=== PATIENT | male | born 1985 | race Caucasian/White ===

== ENCOUNTER 2017-12-10 13:22 | Emergency (ER) | payer SELFPAY ==
[2017-12-10] MEDS ORDERED: ONDANSETRON HCL INJ/PF 4 MG/2 ML SDV IV ONE (14:02)
[2017-12-10] MEDS ORDERED: NORMAL SALINE 1000 ML 1,000 ML IV ONE (14:02)
[2017-12-10] MEDS ORDERED: MORPHINE SULFATE 10 MG/ML INJ IV ONE (14:02)
--- NOTE | 2017-12-10 14:03 | ER Document Report ---
ED Medical Screen (RME) - General Chief Complaint: Rectal Bleeding Stated Complaint: ABDOMINAL PAIN Time Seen by Provider: 12/10/17 14:01 Notes: Patient states that he has severe bilateral lower abdominal pain since yesterday with rectal bleeding. States he has never had similar symptoms in the past. Denies any significant past medical history or surgeries. TRAVEL OUTSIDE OF THE [place] IN LAST 30 DAYS: No - Related Data Allergies/Adverse Reactions: ketorolac [From Toradol] Allergy (Verified 12/10/17 13:25) tramadol [From Ultram] Allergy (Verified 12/10/17 13:25) Past Medical History - Social History Chew tobacco use (# tins/day): No Frequency of alcohol use: None Drug Abuse: None Renal/ Medical History: Denies: Hx Peritoneal Dialysis Physical Exam - Vital signs Vitals: Temp Pulse Resp BP Pulse Ox 97.9 F 79 16 115/84 98 12/10/17 13:28 12/10/17 13:28 12/10/17 13:28 12/10/17 13:28 12/10/17 13:28 Course - Vital Signs Vital signs: Temp Pulse Resp BP Pulse Ox 97.9 F 79 16 115/84 98 12/10/17 13:28 12/10/17 13:28 12/10/17 13:28 12/10/17 13:28 12/10/17 13:28
[2017-12-10 14:16] LABS: ABSOLUTE EOSINOPHILS # (AUTO) 0.4 10^3/uL (0.0-0.6); ABSOLUTE LYMPHOCYTES (AUTO) 1.3 10^3/uL (0.5-4.7); ABSOLUTE MONOCYTES (AUTO) 0.8 10^3/uL (0.1-1.4); BASOPHILS % (AUTO) 0.3 % (0-2); EOSINOPHILS % (AUTO) 3.7 % (0-6); HEMATOCRIT 46.6 % (37.9-51.0); HEMOGLOBIN 15.8 g/dL (13.5-17.0); LYMPHOCYTES % (AUTO) 11.1 % (13-45); MEAN CORPUSCULAR HEMOGLOBIN 30.9 pg (27.0-33.4); MEAN CORPUSCULAR HGB CONC 33.8 g/dL (32.0-36.0); MEAN CORPUSCULAR VOLUME 91 fl (80-97); MONOCYTES % (AUTO) 7.1 % (3-13); PLATELET COUNT 326 10^3/uL (150-450); RED BLOOD COUNT 5.11 10^6/uL (4.35-5.55); RED CELL DISTRIBUTION WIDTH 13.5 % (11.5-14.0); SEGMENTED NEUTROPHILS % (AUTO) 77.8 % (42-78); TOTAL CELLS COUNTED % (AUTO) 100 %; WHITE BLOOD COUNT 11.6 10^3/uL (4.0-10.5)
[2017-12-10 14:39] LABS: ALANINE AMINOTRANSFERASE 24 U/L (21-72); ALBUMIN 4.6 g/dL (3.5-5.0); ALKALINE PHOSPHATASE 56 U/L (38-126); ANION GAP 13 (5-19); ASPARTATE AMINO TRANSFERASE 30 U/L (17-59); BILIRUBIN,DIRECT 0.3 mg/dL (0.0-0.4); BILIRUBIN,TOTAL 0.5 mg/dL (0.2-1.3); BLOOD UREA NITROGEN 16 mg/dL (7-20); CALCIUM 10.3 mg/dL (8.4-10.2); CARBON DIOXIDE 26 mmol/L (22-30); CHLORIDE 107 mmol/L (98-107); GLUCOSE 100 mg/dL (75-110); POTASSIUM 4.6 mmol/L (3.6-5.0); SODIUM 146.2 mmol/L (137-145); TOTAL PROTEIN 7.4 g/dL (6.3-8.2)
--- NOTE | 2017-12-10 14:52 | ER Document Report ---
ED GI Bleed / Rectal Pain - General Chief Complaint: Rectal Bleeding Stated Complaint: ABDOMINAL PAIN Time Seen by Provider: 12/10/17 14:01 Notes: The patient is a 32-year-old male who presents with lower abdominal pain, cramping and bleeding from his rectum. Patient is concerned because the pain is increasing. He had a bowel movement earlier today. Denies fevers, nausea, vomiting, history of inflammatory bowel disease, recent travel, recent antibiotic use, flank pain or urinary symptoms. TRAVEL OUTSIDE OF THE [place] IN LAST 30 DAYS: No - Related Data Allergies/Adverse Reactions: ketorolac [From Toradol] Allergy (Verified 12/10/17 13:25) tramadol [From Ultram] Allergy (Verified 12/10/17 13:25) Past Medical History - General Information source: Patient - Social History Smoking Status: Current Every Day Smoker Chew tobacco use (# tins/day): No Frequency of alcohol use: None Drug Abuse: None Family History: Reviewed & Not Pertinent Patient has suicidal ideation: No Patient has homicidal ideation: No Renal/ Medical History: Denies: Hx Peritoneal Dialysis Review of Systems - Review of Systems Notes: REVIEW OF SYSTEMS: CONSTITUTIONAL: -fevers, -chills EENT: -eye pain, -difficulty swallowing, -nasal congestion CARDIOVASCULAR: -chest pain, -syncope. RESPIRATORY: -cough, -SOB GASTROINTESTINAL: +lower abdominal pain, -nausea, -vomiting, -diarrhea GENITOURINARY: -dysuria, -hematuria MUSCULOSKELETAL: -back pain, -neck pain SKIN: -rash or skin lesions. HEMATOLOGIC: -easy bruising or bleeding. LYMPHATIC: -swollen, enlarged glands. NEUROLOGICAL: -altered mental status or loss of consciousness, -headache, - neurologic symptoms PSYCHIATRIC: -anxiety, -depression. ALL OTHER SYSTEMS REVIEWED AND NEGATIVE. Physical Exam - Vital signs Vitals: Temp Pulse Resp BP Pulse Ox 97.9 F 79 16 115/84 98 12/10/17 13:28 12/10/17 13:28 12/10/17 13:28 12/10/17 13:28 12/10/17 13:28 - Notes Notes: PHYSICAL EXAMINATION: GENERAL: Pt appears under the influence of drugs. Well-appearing, well- nourished and in no acute distress. HEAD: Atraumatic, normocephalic. EYES: Pupils equal round and reactive to light, extraocular movements intact, sclera anicteric, conjunctiva are normal. ENT: nares patent, oropharynx clear without exudates. Moist mucous membranes. NECK: Normal range of motion, supple without lymphadenopathy LUNGS: Breath sounds clear to auscultation bilaterally and equal. No wheezes rales or rhonchi. HEART: Regular rate and rhythm without murmurs ABDOMEN: Soft, mild left lower quadrant and suprapubic tenderness, normoactive bowel sounds. No guarding, no rebound. No masses appreciated. RECTAL: No hemorrhoids. Brown stool. Non-tender. EXTREMITIES: Normal range of motion, no pitting or edema. No cyanosis. NEUROLOGICAL: Cranial nerves grossly intact. Normal speech, normal gait. Normal sensory and motor exams. PSYCH: Normal mood, normal affect. SKIN: Warm, Dry, normal turgor, no rashes or lesions noted. Course - Re-evaluation Re-evalutation: With left lower quadrant abdominal tenderness and blood in his stool, CT abdomen pelvis was ordered. CT did not show any acute abnormalities, other than a moderate stool burden. Patient denies any drug use, but his UDS is positive for benzos and opioids. Instructed him to begin a stool softener from suspected opioid-induced constipation. No blood in stool on physical exam and his hemoglobin is 15.6. Using the Glascow-Blatchford Bleeding Scale, he is low risk for adverse events from his GI bleed and is safe for outpatient follow-up with the GI doctor. Given very strict return precautions and he understands. - Vital Signs Vital signs: Temp Pulse Resp BP Pulse Ox 97.8 F 71 16 121/77 100 12/10/17 17:36 12/10/17 17:36 12/10/17 13:28 12/10/17 17:36 12/10/17 17:36 - Laboratory Result Diagrams: 12/10/17 14:05 12/10/17 14:05 Laboratory results interpreted by me: 12/10/17 12/10/17 14:05 14:05 WBC 11.6 H Lymphocytes % 11.1 L Absolute Neutrophils 9.0 H Sodium 146.2 H Calcium 10.3 H - Diagnostic Test Radiology reviewed: Image reviewed, Reports reviewed Radiology results interpreted by me: CT A/P: Moderate stool burden. Discharge - Discharge Clinical Impression: Blood in stool Abdominal pain Qualifiers: Abdominal location: left lower quadrant Qualified Code(s): R10.32 - Left lower quadrant pain Constipation Qualifiers: Constipation type: unspecified constipation type Qualified Code(s): K59.00 - Constipation, unspecified Condition: Stable Disposition: HOME, SELF-CARE Additional Instructions: ABDOMINAL PAIN: There are many causes of abdominal pain. Pain can mean a serious problem requiring surgery (such as appendicitis). It can also be an innocent problem that goes away on its own (such as a viral infection). Often, time must pass to determine the cause of pain. The physician does not feel that hospitalization is necessary, at present. Things may change within the next 24 hours. Call the doctor or come back for re- examination if any problems occur, such as: (1) Pain that becomes more severe, steady, or becomes concentrated in one specific area. Also, pain that is more severe with movement or coughing. (2) Vomiting that persists or becomes more frequent. (3) Blood in the vomitus, urine, or bowel movements. Blood in the stool may have a tarry or black appearance. (4) Shaking chills or fever greater than 100 degrees F. (5) The abdomen becomes more distended or swollen. (6) Bowel movements cease. (7) Failure to improve as expected. NORMAL EXAM AND WORKUP: At this time, your examination and workup show no significant abnormality. No significant abnormal physical findings are noted. All laboratory, EKG, and imaging (x-ray, CT scans, ultrasound) studies that were ordered show no significant abnormality. Although your examination and all studies that were ordered showed no significant abnormal finding, there are no examinations and no studies that are 100% accurate. There is always the possibility that some abnormality could exist and not be detected with physical examination or within the limits and capabilities of laboratory and other studies. You should return or follow up as you were instructed on your visit today for further evaluation if your symptoms do not resolve. CONSTIPATION: Constipation is a common problem. It is especially likely as you get older. Constipation is a common cause of abdominal pain, but sometimes causes no symptoms at all. Causes of constipation include certain medications, dehydration, diets, inactivity, and low-fiber intake. Rarely, it can be a symptom of underlying disease. The physician has evaluated you for this. Avoid constipation by eating a diet high in fiber, fruits, and vegetables. Drink plenty of liquids. Get regular exercise. If possible, avoid constipating medicines like narcotic pain medication. Some vitamin tablets can cause constipation. Stool softeners may be needed for difficult cases. An excellent stool softener is Konsyl which is available at [employer], and [employer] drug store. Just add a teaspoon to a glass of pineapple or orange juice daily or twice a day if needed. Laxatives are useful for occasional constipation. You should use them only when necessary. Too-frequent use can make your bowels dependent on them. Some over the counter laxatives available without prescription are: Milk of Magnesia, 1-2 tablespoons twice a day Dulcolax, 5 mg pill or 10 mg suppository. Citrate of Magnesia, 4-5 ounces a day for a day or two For acute constipation, Fleet's Enemas and Dulcolax suppositories are helpful. Chronic, correction use of laxatives or enemas is not a good idea. Your bowel may become dependant on them. You do not need to have a bowel movement every day. Many people do fine with a bowel movement every three or four days. You should call your doctor or return for re-evaluation if you pass blood in the stool, or if you develop fever or increasing abdominal pain. BULK LAXATIVES: Bulk laxatives make the stool softer and bulkier. They're useful for preventing constipation. You can choose between psyllium, methylcellulose, and polycarbophil. They are available without a prescription. Psyllium brand names include Konsyl, Metamucil, Perdiem, Effer-Syllium and Hydrocil. It's available as powder, flavored drink powder, or chewable. The usual dose of psyllium powder is one heaping teaspoon in water each morning, increasing to twice a day if needed. [place]ano juice can disguise the slightly grainy texture. Methylcellulose is marketed as Citrucel and other brands. The average dose is two grams in a cup of water one to three times a day. Polycarbophil is marketed as Fiber-Con. Take two tablets with a cup of water one to three times a day. LAXATIVE: A laxative agent has been prescribed for your condition. This should result in passage of stool within 12 hours. Some mild intestinal cramping is common as the hard stool begins to move. You may have loose or runny stools for a short time. Contact your doctor if there is severe cramping, vomiting, or passage of blood. Return for further care if this medicine fails to improve your condition. FOLLOW-UP CARE: If you have been referred to a physician for follow-up care, call the physician s office for an appointment as you were instructed or within the next two days. If you experience worsening or a significant change in your symptoms, notify the physician immediately or return to the Emergency Department at any time for re-evaluation. Prescriptions: Polyethylene Glycol 3350 [Miralax] 1 cap PO DAILY #527 powder Referrals: GORAN CAMPA MD [ACTIVE STAFF] - Follow up as needed
[2017-12-10] MEDS ORDERED: ACETAMINOPHEN 100 ML IV ONE (15:39)
--- NOTE | 2017-12-10 16:57 | RADIOLOGY REPORT (SQ) ---
EXAM DESCRIPTION: CT ABD/PELVIS WITH IV ONLY COMPLETED DATE/TIME: 12/10/2017 4:38 pm REASON FOR STUDY: LLQ and suprapubic pain with rectal bleeding COMPARISON: None. TECHNIQUE: CT scan of the abdomen and pelvis performed using helical scanning technique with dynamic intravenous contrast injection. No oral contrast. Images reviewed with lung, soft tissue, and bone windows. Reconstructed coronal and sagittal MPR images reviewed. Delayed images for evaluation of the urinary system also acquired. All images stored on PACS. All CT scanners at this facility use dose modulation, iterative reconstruction, and/or weight based d osing when appropriate to reduce radiation dose to as low as reasonably achievable (ALARA). [facility]: Dose Right [facility]: CareDose [facility]: Dose Right [facility]: Teradose 4D [facility]: Yakimbi CONTRAST TYPE AND DOSE: contrast/concentration: Isovue 370.00 mg/ml; Total Contrast Delivered: 99.0 ml; Total Saline Delivered: 67.0 ml RENAL FUNCTION: BUN 16 creatinine 0.83 RADIATION DOSE: CT Rad equipment meets quality standard of care and radiation dose reduction techniq ues were employed. CTDIvol: 7.9 - 10.8 mGy. DLP: 1150 mGy-cm.. LIMITATIONS: None. FINDINGS: LOWER CHEST: No significant findings. No nodules or infiltrates. LIVER: Normal size. No masses. No dilated ducts. SPLEEN: Normal size. No focal lesions. PANCREAS: No masses. No significant calcifications. No adjacent inflammation or peripancreatic fluid collections. Pancreatic duct not dilated. GALLBLADDER: No identified stones by CT criteria. No inflammatory changes to suggest cholecystitis. ADRENAL GLANDS: No significant masses or asymmetry. RIGHT KIDNEY AND URETER: No solid masses. No significant calcifications. No hydronephrosis or hyd roureter. LEFT KIDNEY AND URETER: No solid masses. There is a small nonobstructing lower calyceal calculus. No hydronephrosis or hydroureter. AORTA AND VESSELS: No aneurysm. No dissection. Renal arteries, SMA, celiac without stenosis. RETROPERITONEUM: No retroperitoneal adenopathy, hemorrhage or masses. BOWEL AND PERITONEAL CAVITY: No masses or inflammatory changes. Considerable stool is present in the distal sigmoid and rectum. APPENDIX: Surgically absent. PELVIS: No mass. No free fluid. Normal bladder. ABDOMINAL WALL: No masses. No hernias. BONES: Degenerative disc changes at T12-L1. OTHER: No other significant finding. IMPRESSION: 1. Considerable stool in the distal sigmoid and rectum suggesting constipation. 2. L5-S1 degenerative disc changes. 3. No acute findings in the abdomen or pelvis. 3. Nonobstructing left intrarenal calculus. TECHNICAL DOCUMENTATION: JOB ID: [id number] Quality ID # [id number]: Final reports with documentation of one or more dose reduction techniques (e.g., Au tomated exposure control, adjustment of the mA and/or kV according to patient size, use of iterative reconstruction technique) 2010 [employer]- All Rights Reserved Reading location - IP/workstation name: [email or web address]
[2017-12-10 17:08] LABS: AMORPHOUS SEDIMENT,URINE TRACE /HPF; APPEARANCE,URINE SLIGHTLY-CLOUDY; BILIRUBIN,URINE NEGATIVE (NEGATIVE); COLOR,URINE YELLOW; GLUCOSE, URINE NEGATIVE (NEGATIVE); KETONES,URINE NEGATIVE (NEGATIVE); LEUKOCYTE ESTERASE,URINE NEGATIVE (NEGATIVE); NITRITE,URINE NEGATIVE (NEGATIVE); PROTEIN,URINE NEGATIVE (NEGATIVE); URINE SPECIFIC GRAVITY 1.016; UROBILINOGEN,URINE NEGATIVE mg/dL (<2.0)
[2017-12-10 17:23] LABS: URINE AMPHETAMINES SCREEN NEGATIVE; URINE BARBITURATES SCREEN NEGATIVE; URINE BENZODIAZEPINES SCREEN UNCONFIRMED POSITIVE; URINE COCAINE SCREEN NEGATIVE; URINE MARIJUANA (THC) SCREEN NEGATIVE; URINE METHADONE SCREEN NEGATIVE; URINE PHENCYCLIDINE SCREEN NEGATIVE
[2017-12-10 17:42] VITALS: BP 121/77
== END 2017-12-10 17:41 | disposition home or self-care (01) ==
LOC: ER 13:22
DX: K59.00 Constipation, unspecified (principal); K92.1 Melena; R10.32 Left lower quadrant pain; F17.200 Nicotine dependence, unspecified, uncomplicated; Z88.5 Allergy status to narcotic agent; Z88.8 Allergy status to other drugs, medicaments and biological substances
CPT/HCPCS: 99284; 96361; 96374; 96375; 96365; 36415; 85025; 80053; 81001; 80307; 74177; J2270; J2405; J7030; J0131

== ENCOUNTER 2018-02-04 19:35 | Emergency (ER) | payer SELFPAY ==
[2018-02-04 19:51] VITALS: BP 138/87
--- NOTE | 2018-02-04 20:03 | ER Document Report ---
ED Extremity Problem, Lower - General Chief Complaint: Foot Injury Stated Complaint: LEFT FOOT PAIN Time Seen by Provider: 02/04/18 19:51 Mode of Arrival: Ambulatory Information source: Patient Notes: 32-year-old male presents to ED for complaint left foot pain 3 days. He states he kicked a car jamshid 3 days ago to get out of his way try to get to straighten up the weight was supposed to be and injured his foot. He states his foot has bitten progressively more more painful to now he cannot walk on it and is been walking on the side of the foot. TRAVEL OUTSIDE OF THE [place] IN LAST 30 DAYS: No - HPI Patient complains to provider of: Injury, Pain, Swelling Location: Foot Occurred: Other - 3 days Where: Public place Onset/Duration: Gradual, Worse Quality of pain: Achy, Sharp, Throbbing Severity: Moderate Pain Level: 4 Recent injury: Yes Associated symptoms: Painful ambulation Exacerbated by: Hanging down, Movement, Walking Relieved by: Nothing - Related Data Allergies/Adverse Reactions: ketorolac [From Toradol] Allergy (Verified 02/04/18 19:36) tramadol [From Ultram] Allergy (Verified 02/04/18 19:36) Past Medical History - General Information source: Patient, Legal Guardian - Social History Smoking Status: Current Every Day Smoker Cigarette use (# per day): Yes - One half pack per day Chew tobacco use (# tins/day): No Smoking Education Provided: Yes - 4 min Frequency of alcohol use: None Drug Abuse: None Occupation: [employer] Lives with: Parents Family History: Reviewed & Not Pertinent Patient has suicidal ideation: No Patient has homicidal ideation: No - Past Medical History Cardiac Medical History: Reports: None Pulmonary Medical History: Reports: None EENT Medical History: Reports: None Neurological Medical History: Reports: None Endocrine Medical History: Reports: None Renal/ Medical History: Reports: None Malignancy Medical History: Reports None GI Medical History: Reports: None Musculoskeltal Medical History: Reports Hx Musculoskeletal Deformity, Reports Hx Musculoskeletal Trauma Skin Medical History: Reports None Psychiatric Medical History: Reports: None Traumatic Medical History: Reports: Hx Fractures - Skull fracture, right lower leg fracture, lost 5th finger, Hx Traumatic Brain Injury Past Surgical History: Reports: Hx Neurologic Surgery - Skull and brain surgery after fractures skull and TBI, Hx Orthopedic Surgery - 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 - Immunizations Immunizations up to date: Yes Hx Diphtheria, Pertussis, Tetanus Vaccination: Yes Review of Systems - Review of Systems Constitutional: No symptoms reported EENT: No symptoms reported Cardiovascular: No symptoms reported Respiratory: No symptoms reported Gastrointestinal: No symptoms reported Genitourinary: No symptoms reported Male Genitourinary: No symptoms reported Musculoskeletal: Other - Left foot and toes pain and swelling to the left foot Skin: No symptoms reported Hematologic/Lymphatic: No symptoms reported Neurological/Psychological: No symptoms reported -: Yes All other systems reviewed and negative Physical Exam - Vital signs Vitals: Temp Pulse Resp BP Pulse Ox 99.1 F 93 16 138/87 H 97 02/04/18 19:48 02/04/18 19:48 02/04/18 19:48 02/04/18 19:48 02/04/18 19:48 Interpretation: Normal - General General appearance: Appears well, Alert - HEENT Head: Normocephalic, Atraumatic Eyes: Normal Pupils: PERRL - Respiratory Respiratory status: No respiratory distress Chest status: Nontender Breath sounds: Normal Chest palpation: Normal - Cardiovascular Rhythm: Regular Heart sounds: Normal auscultation Murmur: No - Abdominal Inspection: Normal Distension: No distension Bowel sounds: Normal Tenderness: Nontender Organomegaly: No organomegaly - Back Back: Normal, Nontender - Extremities General upper extremity: Normal inspection, Nontender, Normal color, Normal ROM , Normal temperature General lower extremity: Normal temperature. No: Haseeb's sign Foot: Tender, Ecchymosis, Edema, Metatarsal compress. pain, No evidence of FB. No: Navicular tenderness, Unable to bear weight - Very painful - Neurological Neuro grossly intact: Yes Cognition: Normal Orientation: AAOx4 Rima Coma Scale Eye Opening: Spontaneous Rima Coma Scale Verbal: Oriented Rima Coma Scale Motor: Obeys Commands Rima Coma Scale Total: 15 Speech: Normal Motor strength normal: LUE, RUE, LLE, RLE Sensory: Normal - Psychological Associated symptoms: Normal affect, Normal mood - Skin Skin Temperature: Warm Skin Moisture: Dry Skin Color: Normal Course - Re-evaluation Re-evalutation: 02/04/18 20:50 Discussed x-ray report with patient and written report given to patient as he does not read so he can take at home to his father. Patient was given verbal instructions and written instructions that he can give to his father to help him with. Patient does not read or write. There is no fracture on the foot. Patient was instructed to elevate and ice his foot use Tylenol and Motrin. Patient was offered a postop shoe and crutches and he refused both he states no he would just use his shoes walk on the side of his foot like he has been doing. Patient states he has no primary doctor he was given a list of the doctors for him and his father to find a doctor for him. He was also given the name and number of a scabbler. - Vital Signs Vital signs: Temp Pulse Resp BP Pulse Ox 99.1 F 93 16 138/87 H 97 02/04/18 19:48 02/04/18 19:48 02/04/18 19:48 02/04/18 19:48 02/04/18 19:48 - Diagnostic Test Radiology reviewed: Image reviewed, Reports reviewed Discharge - Discharge Clinical Impression: Contusion of left foot including toes Qualifiers: Encounter type: initial encounter Qualified Code(s): S90.32XA - Contusion of left foot, initial encounter; S90.122A - Contusion of left lesser toe(s) without damage to nail, initial encounter; S90.122A - Contusion of left lesser toe(s) without damage to nail, initial encounter Condition: Stable Disposition: HOME, SELF-CARE Instructions: Family Physicians / Practices Additional Instructions: CONTUSION: Your injury has resulted in a contusion -- a crushing of the deep tissues. No injury to important structures was detected during the physician's exam. Contusions vary in the amount of pain they cause, and in the length of time required for healing. Typically, the area will become bruised, and will remain painful to touch for two or three weeks. However, most patients are back to working and playing within a few days. After the initial period of rest and cold-packs, your symptoms (together with the doctor's recommendations) will determine how rapidly you can get back to full activity. Usually this means "do what feels okay, but don't do things that hurt." If re-examination was recommended, it's important to follow up as instructed. Call the doctor or return any time if pain increases, if swelling becomes severe, if you develop numbness or weakness in an injured extremity, or if any other alarming symptoms occur. USE OF TYLENOL (ACETAMINOPHEN): Acetaminophen may be taken for pain relief or fever control. It's much safer than aspirin, offering a wider range of "safe" dosages. It is safe during . Some brand names are Tylenol, Panadol, Datril, Anacin 3, Tempra, and Liquiprin. Acetaminophen can be repeated every four hours. The following are maximum recommended dosages: WEIGHT Dose Drops Elixir Chewable( 80mg) (LBS.) drprs=droppers tsp=teaspoon 6 40 mg 0.4 ml (1/2) 6-11 80 mg 0.8 ml (full) tsp 1 tab 12-16 120 mg 1 1/2 drprs 3/4 tsp 1 1/2 tabs 17-23 160 mg 2 drprs 1 tsp 2 tabs 24-30 240 mg 3 drprs 1 1/2 tsp 3 tabs 30-35 320 mg 2 tsp 4 tabs 36-41 360 mg 2 1/4 tsp 4 1/2 tabs 42-47 400 mg 2 1/2 tsp 5 tabs 48-53 480 mg 3 tsp 6 tabs 54-59 520 mg 3 1/4 tsp 6 1/2 tabs 60-64 560 mg 3 1/2 tsp 7 tabs 65-70 600 mg 3 3/4 tsp 7 1/2 tabs 71-76 640 mg 4 tsp 8 tabs 77-82 720 mg 4 1/2 tsp 9 tabs 83-88 800 mg 5 tsp 10 tabs >89 pounds or adults 650 mg to 900 mg Acetaminophen can be repeated every four hours. Maximum dose not to exceed 4000 mg a day. These maximum recommended dosages are slightly higher than the dosages written on the product container, but these dosages are very safe and below the toxic dosage for acetaminophen. ICE & ELEVATION: Apply ice packs frequently against the painful area. Many different schedules are recommended, such as "20 minutes on, 20 minutes off" or "one hour ice, two hours rest." If you need to work, you may need to go longer between ice treatments. You should plan to have the area ice packed AT LEAST one- fourth of the time. The ice should be applied over the wrap, tape, or splint, or over a layer of cloth -- not directly against the skin. Some ice bags have a built-in cloth and can be put directly on the skin. Your injured part should be elevated as much as possible over the next 48 hours. Try to keep the injury above the level of the heart. Avoid use of the injured area. Elevation and rest will decrease the swelling. USE OF OQXJ-FZX-JOPNEFM IBUPROFEN: Ibuprofen (Advil, Nuprin, Medipren, Motrin IB) is a medication for fever and pain control. In addition, it has anti- inflammatory effects which may be beneficial, especially in the treatment of injuries. It's best to take ibuprofen with food. Persons with ulcer disease or allergy to aspirin should notify their physician of this before taking ibuprofen. Ibuprofen can be given every four to six hours, for a total of four doses daily. Age Pain or fever dose Antiinflammatory dose 6-8 yr 200 mg (1 tab) 200 mg (1 tab) 9-11 yr 200 mg (1 tab) 200-400 mg (1-2 tab) 11-14 yr 200-400 mg (1-2 tab) 400 mg (2 tab) 15-adult 400 mg (2 tab) 600 mg (3 tab) FOLLOW-UP CARE: If you have been referred to a physician for follow-up care, call the physician s office for an appointment as you were instructed or within the next two days. If you experience worsening or a significant change in your symptoms, notify the physician immediately or return to the Emergency Department at any time for re-evaluation. Forms: Elevated Blood Pressure, Smoking Cessation Education, Return to Work Referrals: LEATHA VIGIL [Primary Care Provider] - Follow up as needed LUCIO JACOBSEN DPM [ACTIVE STAFF] - Follow up as needed
--- NOTE | 2018-02-04 20:39 | RADIOLOGY REPORT (SQ) ---
EXAM DESCRIPTION: FOOT LEFT COMPLETE COMPLETED DATE/TIME: 02/04/2018 8:04 pm REASON FOR STUDY: pain after kicking a jamshid COMPARISON: None. NUMBER OF VIEWS: Three views. TECHNIQUE: AP, lateral and oblique radiographic images acquired of the left foot. LIMITATIONS: None. FINDINGS: MINERALIZATION: Normal. BONES: There is an old fracture of the 5th proximal phalanx in the 5th metatarsal. No acute fracture or dislocation is present. JOINTS: No effusions. SOFT TISSUES: No soft tissue swelling. No foreign body. OTHER: No other significant finding. IMPRESSION: NEGATIVE STUDY OF THE LEFT FOOT. NO RADIOGRAPHIC EVIDENCE OF ACUTE INJURY. TECHNICAL DOCUMENTATION: JOB ID: [id number] [employer]- All Rights Reserved Reading location - IP/workstation name: [email or web address]
== END 2018-02-04 20:55 | disposition home or self-care (01) ==
LOC: ER 19:35
DX: S90.32XA Contusion of left foot, initial encounter (principal); S90.122A Contusion of left lesser toe(s) without damage to nail, initial encounter; W22.8XXA Striking against or struck by other objects, initial encounter; F17.210 Nicotine dependence, cigarettes, uncomplicated; Z71.6 Tobacco abuse counseling; Z88.8 Allergy status to other drugs, medicaments and biological substances; Z88.5 Allergy status to narcotic agent
CPT/HCPCS: 99283; 99406

== ENCOUNTER 2018-03-06 10:13 | Emergency (ER) | payer SELFPAY ==
[2018-03-06 10:18] VITALS: BP 135/84
[2018-03-06] MEDS ORDERED: OXYCODONE HCL IR 5 MG TABLET PO ONE (10:29)
[2018-03-06] MEDS ORDERED: METHYLPREDNISOLONE INJ 125 MG/2 ML SDV IM ONE (10:29)
--- NOTE | 2018-03-06 10:35 | ER Document Report ---
HPI - HPI Pain Level: 5 Notes: Patient is a 32-year-old male with a history of right shoulder surgery 2 years ago who presents to the ED complaining of acute on chronic right shoulder pain 5-7 days without any injury. Patient states that he feels tightness in the muscles around the shoulder and occasional burning down into his right arm. Patient states that he has been using a heat pack with minimal relief. He has not been seen for this issue recently. No other recent illness. Denies any headache, fever, head injury, neck pain, URI, sore throat, chest pain, palpitations, syncope, cough, shortness of breath, wheeze, dyspnea, abdominal pain, nausea/vomiting/diarrhea, urinary retention, dysuria, hematuria, loss of control of bowel or bladder, numbness/tingling, saddle anesthesia, muscle paralysis/weakness, or rash. - ROS Systems Reviewed and Negative: Yes All other systems reviewed and negative - MUSCULOSKELETAL Musculoskeletal: REPORTS: Extremity pain - R arm Past Medical History - Social History Smoking Status: Current Every Day Smoker Chew tobacco use (# tins/day): No Frequency of alcohol use: None Drug Abuse: None Family History: Reviewed & Not Pertinent Patient has suicidal ideation: No Patient has homicidal ideation: No Renal/ Medical History: 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 Neck: FROM 2 passive/active. Strength 5+/5. Non-tender midline. + mild tenderness to the rt trapezius muscle that radiates down into near the rt scapular, correlates with pain described. Spurling negative. LUNGS: Breath sounds clear to auscultation bilaterally and equal. No wheezes rales or rhonchi. HEART: Regular rate and rhythm without murmurs, rubs, gallops. ABDOMEN: Soft, nontender, nondistended abdomen. No guarding, no rebound. No masses appreciated. Normal bowel sounds present. No CVA tenderness bilaterally. No pulsatile mass Musculoskeletal: Rt UE: FROM to passive/active. Strength 5+/5. No deficits noted. There is no swelling, erythema, ecchymosis, deformity, or tenderness. N /V intact distal. RC intact. Back: FROM to passive/active. Strength 5+/5. No vertebral point tenderness, stepoffs, or deformities. No other bony tenderness, erythema, swelling, or ecchymosis. SLR negative b/l. Mild spasming. Extremities: No cyanosis, clubbing, or edema b/l. Peripheral pulses 2+. Capillary refill less than 2 seconds. NEUROLOGICAL: Normal speech, normal gait. Normal sensory, motor exams. Reflexes 2+ b/l. PSYCH: Normal mood, normal affect. SKIN: Warm, Dry, normal turgor, no rashes or lesions noted. - INFECTION CONTROL TRAVEL OUTSIDE OF THE [place] IN LAST 30 DAYS: No Course - Re-evaluation Re-evalutation: 03/06/18 10:35 Patient is an afebrile, well-hydrated, 32-year-old male who presents to the ED with right shoulder pain, suspect muscle spasm/inflammatory. Vitals are acceptable without any significant tachycardia, tachypnea, or hypoxia. PE is otherwise unremarkable for any neurovascular compromise, obvious tendon/ ligament rupture, obvious fracture/dislocation, septic joint. Patient does not have any bony tenderness, erythema, ecchymosis, or deformities noted. I was able to reproduce patient's pain by palpating the soft tissues on the scapular and right trapezius area. I did tell patient I will give him 1 p.o. pain medicine today, but he will not be going home with a prescription. Solu-Medrol given IM today. I will send him home with a prescription for baclofen and prednisone. Conservative measures otherwise for symptoms. Call orthopedics today to schedule an appointment for further evaluation and management. Recheck with your PCM in 2-3 days. Sling provided. Return to the ED with any worsening/concerning symptoms otherwise as reviewed in discharge. Patient is in agreement. - Vital Signs Vital signs: Temp Pulse Resp BP Pulse Ox 98.9 F 91 18 135/84 H 97 03/06/18 10:17 03/06/18 10:17 03/06/18 10:17 03/06/18 10:17 03/06/18 10:17 Discharge - Discharge Clinical Impression: Right shoulder pain Qualifiers: Chronicity: acute Qualified Code(s): M25.511 - Pain in right shoulder Condition: Stable Disposition: HOME, SELF-CARE Instructions: Exercise Program for the Shoulder ([facility]) Additional Instructions: Rest, Ice, Compression Use sling as directed Tylenol/ibuprofen as needed Light stretches daily Strength exercises as able Moist heat and massage may help F/u with your PCP in 2-3 days for a recheck Consider consult(s) with Orthopedics/physical therapy for ongoing/worsening symptoms Return to the ED with any worsening symptoms and/or development of fever, headache, chest pain, palpitations, syncope, shortness of breath, trouble breathing, abdominal pain, n/v/d, muscle weakness/paralysis, numbness/tingling, swelling, redness, or other worsening symptoms that are concerning to you. Prescriptions: Baclofen [Baclofen 10 mg Tablet] 5 - 10 mg PO BID PRN #10 tablet PRN Reason: Prednisone 20 mg PO ASDIR #18 tablet Forms: Elevated Blood Pressure, Smoking Cessation Education Referrals: [facility] ([place]) [Provider Group] - Follow up in 3-5 days
== END 2018-03-06 10:49 | disposition home or self-care (01) ==
LOC: ER 10:13
DX: M25.511 Pain in right shoulder (principal); F17.200 Nicotine dependence, unspecified, uncomplicated
CPT/HCPCS: 96372; 99283; J2930

== ENCOUNTER 2018-03-22 00:33 | Emergency (ER) | payer SELFPAY ==
[2018-03-22 00:45] VITALS: BP 162/90
--- NOTE | 2018-03-22 00:58 | ER Document Report ---
ED Medical Screen (RME) - General Stated Complaint: BLOOD IN URINATION/FANK PAIN Time Seen by Provider: 03/22/18 00:57 Mode of Arrival: Wheelchair Information source: Patient Notes: Patient presents with sudden onset right flank pain with blood in his urine. Patient reports history of kidney stones. Denies fever. Exam: Patient hunched over in wheelchair, complaining of severe flank pain. CVA tenderness noted. I have greeted and performed a rapid initial assessment of this patient. A comprehensive ED assessment and evaluation of the patient, analysis of test results and completion of the medical decision making process will be conducted by additional ED providers. Dictation of this chart was performed using voice recognition software; therefore, there may be some unintended grammatical errors. TRAVEL OUTSIDE OF THE [place] IN LAST 30 DAYS: No - Related Data Allergies/Adverse Reactions: ketorolac [From Toradol] Allergy (Verified 03/06/18 10:21) rash tramadol [From Ultram] Allergy (Verified 03/06/18 10:21) rash Past Medical History Renal/ Medical History: Denies: Hx Peritoneal Dialysis Musculoskeltal Medical History: Reports Hx Musculoskeletal Deformity, Reports Hx Musculoskeletal Trauma Traumatic Medical History: Reports: Hx Fractures - Skull fracture, right lower leg fracture, lost 5th finger, Hx Traumatic Brain Injury Past Surgical History: Reports: Hx Neurologic Surgery - Skull and brain surgery after fractures skull and TBI, Hx Orthopedic Surgery - 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
[2018-03-22] MEDS ORDERED: ONDANSETRON HCL INJ/PF 4 MG/2 ML SDV IV ONE (00:59)
[2018-03-22] MEDS ORDERED: MORPHINE SULFATE 10 MG/ML INJ IV ONE ×2 (00:59→01:29)
[2018-03-22 01:05] LABS: APPEARANCE,URINE CLOUDY; BILIRUBIN,URINE NEGATIVE (NEGATIVE); COLOR,URINE RED; GLUCOSE, URINE NEGATIVE (NEGATIVE); KETONES,URINE NEGATIVE (NEGATIVE); LEUKOCYTE ESTERASE,URINE NEGATIVE (NEGATIVE); NITRITE,URINE NEGATIVE (NEGATIVE); PROTEIN,URINE 100 mg/dL (NEGATIVE); URINE SPECIFIC GRAVITY 1.013; UROBILINOGEN,URINE NEGATIVE mg/dL (<2.0)
--- NOTE | 2018-03-22 01:17 | RADIOLOGY REPORT (SQ) ---
EXAM DESCRIPTION: CT ABDOMEN WITHOUT IV CONTRAST COMPLETED DATE/TME: 03/22/2018 00:00 CLINICAL HISTORY: Bilateral lower abdominal pain. COMPARISON: 12/10/2017 TECHNIQUE: CT of the abdomen and pelvis without IV contrast. Evaluation of the solid organs and vasculature is suboptimal due to lack of IV contrast. DLP: 421.97 mGy-cm FINDINGS: Lung Bases: The visualized lung bases are clear. Bones: No destructive bone lesions identified. Mild endplate spondylosis. Abdomen: Liver: The liver has normal size and density. Gallbladder: No calcified gallstones. Spleen, Pancreas, and Adrenal Glands: The spleen, pancreas, and adrenal glands are unremarkable. Kidneys: There is a 0.3 cm obstructing calculus in the mid left ureter producing mild left hydroureter and hydronephrosis. No right-sided hydronephrosis. Vasculature: The aorta and IVC have normal caliber and position. Stomach: The stomach and duodenum have normal course. Other: No free intraperitoneal air. No free fluid or lymphadenopathy. Pelvis: Bladder: Urinary bladder is unremarkable. Bowel: No dilated loops of large or small bowel. Scattered diverticula of the colon. Appendix: Prior appendectomy. Pelvis: Prostate is not enlarged. IMPRESSION: 1. There is a 0.3 cm obstructing calculus in the mid left ureter producing mild left hydronephrosis. This exam was performed according to our departmental dose-optimization program, which includes automated exposure control, adjustment of the mA and/or kV according to patient size and/or use of iterative reconstruction technique.
[2018-03-22 01:22] LABS: ABSOLUTE BASOPHILS # (AUTO) 0.1 10^3/uL (0.0-0.2); ABSOLUTE EOSINOPHILS # (AUTO) 0.9 10^3/uL (0.0-0.6); ABSOLUTE MONOCYTES (AUTO) 0.9 10^3/uL (0.1-1.4); ABSOLUTE NEUT (AUTO) 8.1 10^3/uL (1.7-8.2); BASOPHILS % (AUTO) 0.4 % (0-2); EOSINOPHILS % (AUTO) 7.2 % (0-6); HEMATOCRIT 41.9 % (37.9-51.0); HEMOGLOBIN 14.5 g/dL (13.5-17.0); MEAN CORPUSCULAR HEMOGLOBIN 31.3 pg (27.0-33.4); MEAN CORPUSCULAR HGB CONC 34.7 g/dL (32.0-36.0); MEAN CORPUSCULAR VOLUME 90 fl (80-97); PLATELET COUNT 310 10^3/uL (150-450); RED BLOOD COUNT 4.64 10^6/uL (4.35-5.55); RED CELL DISTRIBUTION WIDTH 12.8 % (11.5-14.0); SEGMENTED NEUTROPHILS % (AUTO) 62.4 % (42-78); TOTAL CELLS COUNTED % (AUTO) 100 %
[2018-03-22] MEDS ORDERED: TAMSULOSIN HCL 0.4 MG CAP.SR.24H PO ONE (01:28)
[2018-03-22] MEDS ORDERED: CEFEPIME 2 GM/D5W RTU 2 GM/50 ML RTUPB IV SCH ×2 (01:30→18:00)
[2018-03-22 01:41] LABS: ALANINE AMINOTRANSFERASE 25 U/L (21-72); ALBUMIN 4.1 g/dL (3.5-5.0); ALKALINE PHOSPHATASE 54 U/L (38-126); ANION GAP 15 (5-19); ASPARTATE AMINO TRANSFERASE 22 U/L (17-59); BILIRUBIN,DIRECT 0.2 mg/dL (0.0-0.4); BILIRUBIN,TOTAL 0.3 mg/dL (0.2-1.3); BLOOD UREA NITROGEN 13 mg/dL (7-20); CALCIUM 9.4 mg/dL (8.4-10.2); CARBON DIOXIDE 24 mmol/L (22-30); CHLORIDE 105 mmol/L (98-107); GLUCOSE 96 mg/dL (75-110); LIPASE 78.8 U/L (23-300); POTASSIUM 3.6 mmol/L (3.6-5.0); SODIUM 143.6 mmol/L (137-145); TOTAL PROTEIN 7.1 g/dL (6.3-8.2)
[2018-03-22] MEDS ORDERED: HYDROMORPHONE HCL INJ/PF 2 MG/ML AMPULE IV ONE (01:49)
[2018-03-22] MEDS ORDERED: CEFEPIME 2 GM/D5W RTU 2 GM/50 ML RTUPB IV ONE (03:00)
[2018-03-22] MEDS ORDERED: FENTANYL CITRATE INJ/PF 100 MCG/2 ML AMPUL IV ONE (03:34)
--- NOTE | 2018-03-22 04:32 | ER Document Report ---
ED General - General Chief Complaint: Possible Kidney Stone Stated Complaint: BLOOD IN URINATION/FANK PAIN Time Seen by Provider: 03/22/18 00:57 Mode of Arrival: Wheelchair Information source: Patient, [facility] Records Notes: 32-year-old male with traumatic brain injury, recurrent kidney stones presents with complaint of acute onset of right flank pain that occurred just prior to arrival. Patient describes the pain as severe, constant and stabbing with radiation to his suprapubic region. Patient reports a history of multiple stones. He states that "the past 13 stones last week". Patient reports that he has required lithotripsy, stent placement in the past. Patient has had associated nausea, vomiting, dysuria, hematuria. He denies any fever, chest pain, vomiting, diarrhea. TRAVEL OUTSIDE OF THE [place] IN LAST 30 DAYS: No - HPI Onset: Just prior to arrival Onset/Duration: Sudden Quality of pain: Stabbing, Throbbing Severity: Moderate Pain Level: 3 Associated symptoms: Nausea. denies: Chest pain, Diarrhea, Fever, Vomiting, Shortness of breath Exacerbated by: Movement Relieved by: Denies Similar symptoms previously: Yes Recently seen / treated by doctor: Yes - Related Data Allergies/Adverse Reactions: ketorolac [From Toradol] Allergy (Verified 03/06/18 10:21) rash tramadol [From Ultram] Allergy (Verified 03/06/18 10:21) rash Past Medical History - General Information source: Patient - Social History Smoking Status: Current Every Day Smoker Chew tobacco use (# tins/day): No Smoking Education Provided: Yes - Patient was counseled on smoking cessation for 4 minutes. Frequency of alcohol use: Occasional Drug Abuse: None Lives with: Spouse/Significant other Family History: Reviewed & Not Pertinent Patient has suicidal ideation: No Patient has homicidal ideation: No Renal/ Medical History: 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 Denies recent illness. Denies weight loss, recent hospitalizations. EENT: Denies visual changes, eye pain. Denies nasal or sinus congestion or discharge. Denies sore throat, oral lesions, difficulty swallowing. CARDIOVASCULAR: Denies chest pain. Denies palpitations. Denies lower extremity edema. RESPIRATORY: Denies cough, cold, or chest congestion. Denies shortness of breath, wheezing. GASTROINTESTINAL: Denies abdominal pain or distention. Denies diarrhea. Denies blood in vomitus, stools, or per rectum. Denies black, tarry stools. Denies constipation. GENITOURINARY: Denies difficulty urinating. MUSCULOSKELETAL: Denies back or neck pain or stiffness. Denies joint pain or swelling. SKIN: Denies rash, lesions or sores. HEMATOLOGIC : Denies easy bruising or bleeding. LYMPHATIC: Denies swollen glands. NEUROLOGICAL: Denies confusion or altered mental status. Denies passing out or loss of consciousness. Denies dizziness or lightheadedness. Denies headache. Denies weakness or paralysis. Denies problems difficulty with ambulation, slurred speech. Denies sensory loss, numbness, or tingling. Denies seizures. PSYCHIATRIC: Denies anxiety or stress. Denies depression, suicidal ideation, or homicidal ideation. Denies visual or auditory hallucinations. Physical Exam - Vital signs Vitals: Temp Pulse Resp BP Pulse Ox 98.1 F 88 20 162/90 H 99 03/22/18 00:44 03/22/18 00:44 03/22/18 00:44 03/22/18 00:44 03/22/18 00:44 Interpretation: Hypertensive. No: Febrile - Notes Notes: PHYSICAL EXAMINATION: GENERAL: In moderate distress, crying hysterically. HEAD: Atraumatic, normocephalic. EYES: Pupils equal round and reactive to light, extraocular movements intact, sclera anicteric, conjunctiva are normal. ENT: Nares patent, oropharynx clear without exudates. Moist mucous membranes. NECK: Normal range of motion, supple without lymphadenopathy LUNGS: Breath sounds clear to auscultation bilaterally and equal. No wheezes rales or rhonchi. HEART: Regular rate and rhythm without murmurs ABDOMEN: Soft, nontender, nondistended abdomen. No guarding, no rebound. No masses appreciated. Right CVA tenderness Musculoskeletal: Normal range of motion, no pitting or edema. No cyanosis. NEUROLOGICAL: Cranial nerves grossly intact. Normal speech, normal gait. Normal sensory, motor exams PSYCH: Normal mood, normal affect. SKIN: Warm, Dry, normal turgor, no rashes or lesions noted. Course - Re-evaluation Re-evalutation: Laboratory 03/22/18 03/22/18 03/22/18 00:41 01:12 01:12 WBC 13.0 H RBC 4.64 Hgb 14.5 Hct 41.9 MCV 90 MCH 31.3 MCHC 34.7 RDW 12.8 Plt Count 310 Seg Neutrophils % 62.4 Lymphocytes % 23.0 Monocytes % 7.0 Eosinophils % 7.2 H Basophils % 0.4 Absolute Neutrophils 8.1 Absolute Lymphocytes 3.0 Absolute Monocytes 0.9 Absolute Eosinophils 0.9 H Absolute Basophils 0.1 Sodium 143.6 Potassium 3.6 Chloride 105 Carbon Dioxide 24 Anion Gap 15 BUN 13 Creatinine 1.00 Est GFR ( Amer) > 60 Est GFR (Non-Af Amer) > 60 Glucose 96 Calcium 9.4 Total Bilirubin 0.3 Direct Bilirubin 0.2 Neonat Total Bilirubin Not Reportable Neonat Direct Bilirubin Not Reportable Neonat Indirect Bili Not Reportable AST 22 ALT 25 Alkaline Phosphatase 54 Total Protein 7.1 Albumin 4.1 Lipase 78.8 Urine Color RED Urine Appearance CLOUDY Urine pH 7.0 Ur Specific [place] 1.013 Urine Protein 100 H Urine Glucose (UA) NEGATIVE Urine Ketones NEGATIVE Urine Blood LARGE H Urine Nitrite NEGATIVE Urine Bilirubin NEGATIVE Urine Urobilinogen NEGATIVE Ur Leukocyte Esterase NEGATIVE Urine WBC (Auto) >182 Urine RBC (Auto) >182 Squamous Epi Cells Auto 2 Urine Ascorbic Acid NEGATIVE Limited or Localized CT 03/22/18 00:00 IMPRESSION: 1. There is a 0.3 cm obstructing calculus in the mid left ureter producing mild left hydronephrosis. This exam was performed according to our departmental dose-optimization program, which includes automated exposure control, adjustment of the mA and/or kV according to patient size and/or use of iterative reconstruction technique. 03/22/18 04:35 32-year-old male with traumatic brain injury, recurrent kidney stones presents with complaint of acute onset of right flank pain that occurred just prior to arrival. Patient describes the pain as severe, constant and stabbing with radiation to his suprapubic region. Patient reports a history of multiple stones. He states that "the past 13 stones last week". Patient reports that he has required lithotripsy, stent placement in the past. Patient has had associated nausea, vomiting, dysuria, hematuria. He denies any fever, chest pain, vomiting, diarrhea. Patient was seen by myself upon arrival. Vital signs were reviewed. Patient is afebrile, normotensive and not hypoxic. Patient does not appear toxic or dehydrated. They are in no acute distress. Previous medical records and nursing notes reviewed. Significant findings include a mild leukocytosis and CBC. Urinalysis that shows a large amount of blood and WBCs but is negative for leukoesterase and nitrates. Urine culture pending. Patient received 8 mg of morphine, 1 mg of Dilaudid, Flomax, Toradol, IV fluids and 4 mg of IV Zofran. On reevaluation patient states that his pain has not improved. CT was obtained that shows a 0.3 cm obstructing calculus with mild left hydronephrosis. Fentanyl 100 mg IV was administered and now patient reports an improvement of his pain and is requesting discharge home. Patient provided the opportunity to ask questions, and express concerns. Discharge instructions discussed. Patient is agreeable with discharge home. Return indications explained and discussed with the patient who displays understanding. Patient encouraged to return to the emergency department immediately with any concerns. - Vital Signs Vital signs: Temp Pulse Resp BP Pulse Ox 98.1 F 88 18 162/90 H 98 03/22/18 00:47 03/22/18 00:47 03/22/18 02:00 03/22/18 00:47 03/22/18 02:00 - Laboratory Result Diagrams: 03/22/18 01:12 03/22/18 01:12 Laboratory results interpreted by me: 03/22/18 03/22/18 00:41 01:12 WBC 13.0 H Eosinophils % 7.2 H Absolute Eosinophils 0.9 H Urine Protein 100 H Urine Blood LARGE H - Diagnostic Test Radiology reviewed: Image reviewed, Reports reviewed Discharge - Discharge Clinical Impression: Urolithiasis Qualifiers: Urinary calculus location: lower urinary tract Qualified Code(s): N21.9 - Calculus of lower urinary tract, unspecified Hematuria Qualifiers: Hematuria type: unspecified type Qualified Code(s): R31.9 - Hematuria, unspecified Condition: Good Disposition: HOME, SELF-CARE Instructions: Hematuria ([facility]), Kidney Stone ([facility]) Prescriptions: Hydrocodone/Acetaminophen [[place] 5-325 mg Tablet] 1 tab PO Q6H #12 tablet Ibuprofen [Motrin 600 Mg Tablet] 600 mg PO TID #15 tablet Ondansetron [Zofran Odt 4 mg Tablet] 1 - 2 tab PO Q4H PRN #15 tab.rapdis PRN Reason: For Nausea/Vomiting Tamsulosin HCl [Flomax 0.4 mg Cap.sr] 0.4 mg PO DAILY #7 cap.sr.24h Referrals: ZEKE CAMPBELL MD [[facility]] - Follow up in 3-5 days
== END 2018-03-22 04:50 | disposition home or self-care (01) ==
LOC: ER 00:33
DX: N13.2 Hydronephrosis with renal and ureteral calculous obstruction (principal); R31.9 Hematuria, unspecified; R30.0 Dysuria; R11.0 Nausea; F17.200 Nicotine dependence, unspecified, uncomplicated; Z71.6 Tobacco abuse counseling
CPT/HCPCS: 99284; 96375; 96365; 96366; 36415; 87086; 83690; 85025; 80053; 81001; 76380; J3010; J2270; J1170; J2405; J0692

== ENCOUNTER 2018-03-27 10:21 | Emergency (ER) | payer SELFPAY ==
[2018-03-27] MEDS ORDERED: PROMETHAZINE HCL INJ 25 MG/1 ML VIAL IM ONE (10:42)
[2018-03-27] MEDS ORDERED: FENTANYL CITRATE INJ/PF 100 MCG/2 ML AMPUL IM ONE (10:43)
--- NOTE | 2018-03-27 10:45 | ER Document Report ---
ED Medical Screen (RME) - General Chief Complaint: Flank Pain Stated Complaint: FLANK PAIN Time Seen by Provider: 03/27/18 10:28 Notes: 32-year-old male to the emergency department with complaints of pelvic pain. Recent diagnosis of kidney stone. Denies any fever chills or sweats. States the pain is severe. Radiates to his right flank. Requesting something for pain but states he he is allergic to Toradol and tramadol. TRAVEL OUTSIDE OF THE [place] IN LAST 30 DAYS: No - HPI Onset: Yesterday - Related Data Allergies/Adverse Reactions: ketorolac [From Toradol] Allergy (Verified 03/27/18 10:25) rash tramadol [From Ultram] Allergy (Verified 03/27/18 10:25) rash Past Medical History - Social History Chew tobacco use (# tins/day): No Frequency of alcohol use: Occasional Drug Abuse: None Renal/ Medical History: Denies: Hx Peritoneal Dialysis Musculoskeltal Medical History: Reports Hx Musculoskeletal Deformity, Reports Hx Musculoskeletal Trauma Traumatic Medical History: Reports: Hx Fractures - Skull fracture, right lower leg fracture, lost 5th finger, Hx Traumatic Brain Injury Past Surgical History: Reports: Hx Neurologic Surgery - Skull and brain surgery after fractures skull and TBI, Hx Orthopedic Surgery - 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 - Immunizations Immunizations up to date: Yes Hx Diphtheria, Pertussis, Tetanus Vaccination: Yes Physical Exam - Vital signs Vitals: Temp Pulse Resp BP Pulse Ox 98.1 F 100 18 140/92 H 99 03/27/18 10:27 03/27/18 10:27 03/27/18 10:27 03/27/18 10:27 03/27/18 10:27 Interpretation: Normal - General General appearance: Appears well, Anxious, Other - Crying In distress: Moderate - Abdominal Inspection: Normal Distension: No distension Bowel sounds: Normal Tenderness: Nontender Organomegaly: No organomegaly Course - Re-evaluation Re-evalutation: 03/27/18 10:45 I have greeted and performed a rapid initial assessment of this patient. A comprehensive ED assessment and evaluation of the patient, analysis of test results and completion of the medical decision making process will be conducted by additional ED providers. - Vital Signs Vital signs: Temp Pulse Resp BP Pulse Ox 98.1 F 100 18 140/92 H 99 03/27/18 10:27 03/27/18 10:27 03/27/18 10:27 03/27/18 10:27 03/27/18 10:27
[2018-03-27] MEDS ORDERED: NORMAL SALINE 1000 ML 1,000 ML IV ONE (11:33)
[2018-03-27 12:00] LABS: ABSOLUTE EOSINOPHILS # (AUTO) 0.5 10^3/uL (0.0-0.6); ABSOLUTE LYMPHOCYTES (AUTO) 2.3 10^3/uL (0.5-4.7); ABSOLUTE NEUT (AUTO) 8.8 10^3/uL (1.7-8.2); BASOPHILS % (AUTO) 0.3 % (0-2); HEMATOCRIT 43.6 % (37.9-51.0); HEMOGLOBIN 14.9 g/dL (13.5-17.0); MEAN CORPUSCULAR HGB CONC 34.2 g/dL (32.0-36.0); MEAN CORPUSCULAR VOLUME 91 fl (80-97); MONOCYTES % (AUTO) 7.9 % (3-13); PLATELET COUNT 330 10^3/uL (150-450); RED BLOOD COUNT 4.82 10^6/uL (4.35-5.55); RED CELL DISTRIBUTION WIDTH 12.6 % (11.5-14.0); SEGMENTED NEUTROPHILS % (AUTO) 69.8 % (42-78); TOTAL CELLS COUNTED % (AUTO) 100 %; WHITE BLOOD COUNT 12.6 10^3/uL (4.0-10.5)
[2018-03-27 12:23] LABS: ANION GAP 15 (5-19); BLOOD UREA NITROGEN 14 mg/dL (7-20); CALCIUM 9.5 mg/dL (8.4-10.2); CARBON DIOXIDE 24 mmol/L (22-30); CHLORIDE 103 mmol/L (98-107); GLUCOSE 91 mg/dL (75-110); POTASSIUM 3.9 mmol/L (3.6-5.0); SODIUM 142.2 mmol/L (137-145)
[2018-03-27] MEDS ORDERED: NORMAL SALINE 1000 ML 1,000 ML IV PRN (13:04)
[2018-03-27 13:34] LABS: APPEARANCE,URINE CLEAR; BILIRUBIN,URINE NEGATIVE (NEGATIVE); COLOR,URINE YELLOW; GLUCOSE, URINE NEGATIVE (NEGATIVE); KETONES,URINE NEGATIVE (NEGATIVE); LEUKOCYTE ESTERASE,URINE NEGATIVE (NEGATIVE); NITRITE,URINE NEGATIVE (NEGATIVE); PROTEIN,URINE NEGATIVE (NEGATIVE); URIC ACID CRYSTALS,URINE MODERATE /HPF; URINE SPECIFIC GRAVITY 1.003; UROBILINOGEN,URINE NEGATIVE mg/dL (<2.0)
--- NOTE | 2018-03-27 14:00 | ER Document Report ---
ED General - General Chief Complaint: Flank Pain Stated Complaint: FLANK PAIN Time Seen by Provider: 03/27/18 10:28 TRAVEL OUTSIDE OF THE [place] IN LAST 30 DAYS: No - HPI Patient complains to provider of: This 32-year-old man presents for evaluation of flank pain Onset: Other - He has a history of recurrent nephrolithiasis for which she has been evaluated multiple times currently he does not have the finances which allow him to follow up regularly with a physician as a result he does not currently receive treatment, he notes that this pain has been persistent, he was evaluated previously and given medications to help him expel the kidney stone he has continued to have pain since and has not been able to pass it. He denies any fevers or chills emesis, chest pain, shortness of breath, lightheadedness, focal numbness or weakness he does endorse dysuria and radiating pain into his pelvis which is consistent with previous. Kidney stones he has taken ibuprofen which minimally helps he has taken Flomax and is now out of it and has been taking an antibiotic. - Related Data Allergies/Adverse Reactions: ketorolac [From Toradol] Allergy (Verified 03/27/18 10:25) rash tramadol [From Ultram] Allergy (Verified 03/27/18 10:25) rash Past Medical History - General Information source: Patient - Social History Smoking Status: Current Every Day Smoker Chew tobacco use (# tins/day): No Frequency of alcohol use: Occasional Drug Abuse: None Family History: Reviewed & Not Pertinent Patient has suicidal ideation: No Patient has homicidal ideation: No Renal/ Medical History: 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 - Immunizations Immunizations up to date: Yes Hx Diphtheria, Pertussis, Tetanus Vaccination: Yes Review of Systems - Review of Systems Genitourinary: Flank pain -: Yes All other systems reviewed and negative Physical Exam - Vital signs Vitals: Temp Pulse Resp BP Pulse Ox 98.1 F 100 18 140/92 H 99 03/27/18 10:27 03/27/18 10:27 03/27/18 10:27 03/27/18 10:27 03/27/18 10:27 - General General appearance: Anxious In distress: Moderate - HEENT Head: Normocephalic Eyes: Normal Conjunctiva: Normal - Respiratory Respiratory status: No respiratory distress Chest status: Nontender Breath sounds: Normal Chest palpation: Normal - Cardiovascular Rhythm: Regular Heart sounds: Normal auscultation Murmur: No - Abdominal Inspection: Normal Distension: No distension - Genitourinary Tenderness: Other - Profound tenderness along the left flank to percussion - Back Back: Tender - Neurological Neuro grossly intact: Yes Cognition: Normal Orientation: AAOx4 - Psychological Associated symptoms: Normal affect Course - Re-evaluation Re-evalutation: 03/27/18 16:17 This 32-year-old man presented for evaluation of flank pain he believes is related to a kidney stone. Given his history of recurrent nephrolithiasis in the past through triage a urinalysis chemistry and count were ordered. He had a CT previously which did demonstrate a 3 mm stone along the flank. His continued pain despite taking Flomax narcotics and ibuprofen at home and drinking lots of water. On examination he does look uncomfortable, he does have market flank pain. His urinalysis is improved from his previous he is afebrile and his creatinine is at essentially baseline within normal limits. He is able to eat and drink in the emergency department. As he currently does not demonstrate systemic signs of infection do not believe that he has an infected kidney stone requiring emergent intervention, as he is able to tolerate p.o. and has improved pain in the emergency department believe that he is appropriate for outpatient treatment will give prescription for oral narcotic have discussed with him that he will not receive oral narcotics in the emergency department in the future for which he is in agreement. He will follow-up with the primary physician, counseled extensively about the importance of smoking cessation for his financial situation. At the time of discharge he was ambulatory. - Vital Signs Vital signs: Temp Pulse Resp BP Pulse Ox 98.1 F 100 16 133/93 H 100 03/27/18 10:27 03/27/18 10:27 03/27/18 13:01 03/27/18 13:01 03/27/18 12:56 - Laboratory Result Diagrams: 03/27/18 11:30 08/03/18 11:30 Laboratory results interpreted by me: 03/27/18 03/27/18 11:30 13:15 WBC 12.6 H Absolute Neutrophils 8.8 H Urine Blood LARGE H Discharge - Discharge Clinical Impression: Hematuria, Urolithiasis Condition: Stable Disposition: HOME, SELF-CARE Instructions: Kidney Stone ([facility]) Prescriptions: Ibuprofen 400 mg PO QID #30 tablet Oxycodone HCl/Acetaminophen [Percocet 5-325 mg Tablet] 1 - 2 tab PO Q4H PRN #15 tablet PRN Reason: Tamsulosin HCl 0.4 mg PO TID #15 cap.er.24h Referrals: [facility] [Provider Group] - Follow up as needed [facility] [Provider Group] - Follow up as needed
[2018-03-27 14:39] VITALS: BP 129/95
== END 2018-03-27 14:41 | disposition home or self-care (01) ==
LOC: ER 10:21
DX: N20.9 Urinary calculus, unspecified (principal); R31.9 Hematuria, unspecified; R10.9 Unspecified abdominal pain; F17.200 Nicotine dependence, unspecified, uncomplicated; Z87.442 Personal history of urinary calculi
CPT/HCPCS: 99284; 96372; 96360; 96361; 36415; 85025; 80048; 81001; J3010; J2550; J7030

== ENCOUNTER 2018-04-01 13:05 | Emergency (ER) | payer SELFPAY ==
[2018-04-01 13:25] VITALS: BP 138/77
[2018-04-01] MEDS ORDERED: ONDANSETRON HCL INJ/PF 4 MG/2 ML SDV IV ONE (14:03)
[2018-04-01] MEDS ORDERED: FENTANYL CITRATE INJ/PF 100 MCG/2 ML AMPUL IV ONE (14:03)
[2018-04-01] MEDS ORDERED: NORMAL SALINE 1000 ML 1,000 ML IV ONE (14:04)
--- NOTE | 2018-04-01 14:13 | ER Document Report ---
ED GI/ - General Chief Complaint: Flank Pain Stated Complaint: FLANK PAIN Time Seen by Provider: 04/01/18 14:02 Notes: Chief complaint: Left flank pain History of complain:( obtained from----patien 32 years old male with a history of kidney stones diagnosed about 9 days ago, presents today with left flank pain almost continuous since the day he were diagnosed. And today more than usual associated with nausea. Denies any hematuria denies any fever chills or other constitutional symptoms. Onset: Gradual Duration: As above Severity: Severe Quality: Sharp Context: Left ureteric stone Exacerbating factor and relieving factors: As above REVIEW OF SYSTEMS: CONSTITUTIONAL : Denies fever, chills, or sweats. Denies recent illness. EENT: Denies eye, ear, throat, or mouth pain or symptoms. Denies nasal or sinus congestion or discharge. Denies throat, tongue, or mouth swelling or difficulty swallowing. CARDIOVASCULAR: Denies chest pain. Denies palpitations or racing or irregular heart beat. Denies ankle edema. RESPIRATORY: Denies cough, cold, or chest congestion. Denies shortness of breath, difficulty breathing, or wheezing. GASTROINTESTINAL: Denies distention. Denies nausea, vomiting, or diarrhea. Denies blood in vomitus, stools, or per rectum. Denies black, tarry stools. Denies constipation. GENITOURINARY: Denies difficulty urinating, painful urination, burning, frequency, blood in urine, or discharge. FEMALE GENITOURINARY: Denies vaginal bleeding, heavy or abnormal periods, irregular periods. Denies vaginal discharge or odor. MUSCULOSKELETAL: Denies back or neck pain or stiffness. Denies joint pain or swelling. SKIN: Denies rash, lesions or sores. HEMATOLOGIC : Denies easy bruising or bleeding. LYMPHATIC: Denies swollen, enlarged glands. NEUROLOGICAL: Denies confusion or altered mental status. Denies passing out or loss of consciousness. Denies dizziness or lightheadedness. Denies headache. Denies weakness or paralysis or loss of use of either side. Denies problems with gait or speech. Denies sensory loss, numbness, or tingling. Denies seizures. PSYCHIATRIC: Denies anxiety or stress. Denies depression, suicidal ideation, or homicidal ideation. ALL OTHER SYSTEMS REVIEWED AND NEGATIVE. PHYSICAL EXAMINATION: GENERAL: Well-appearing, well-nourished and in acute distress. HEAD: Atraumatic, normocephalic. EYES: Pupils equal round and reactive to light, extraocular movements intact, conjunctiva are normal. ENT: Nares patent, oropharynx clear without exudates. Moist mucous membranes. NECK: Normal range of motion, supple without lymphadenopathy LUNGS: Breath sounds clear to auscultation bilaterally and equal. No wheezes rales or rhonchi. HEART: Regular rate and rhythm without murmurs ABDOMEN: Soft, nontender, nondistended abdomen. No guarding, no rebound. No masses appreciated. Examination of genitals-deferred Musculoskeletal: Normal range of motion, no pitting or edema. No cyanosis. NEUROLOGICAL: Cranial nerves grossly intact. Normal speech, normal gait. Normal sensory, motor exams PSYCH: Normal mood, normal affect. SKIN: Warm, Dry, normal turgor, no rashes or lesions noted. Dictation was performed using [employer] voice recognition software TRAVEL OUTSIDE OF THE [place] IN LAST 30 DAYS: No - HPI Notes: 04/01/18 14:12 Dictated - Related Data Allergies/Adverse Reactions: Iodinated Contrast- Oral and IV Dye Allergy (Verified 04/01/18 13:49) Hives ketorolac [From Toradol] Allergy (Verified 04/01/18 13:09) rash tramadol [From Ultram] Allergy (Verified 04/01/18 13:09) rash Past Medical History - Social History Smoking Status: Current Every Day Smoker Chew tobacco use (# tins/day): No Frequency of alcohol use: None Drug Abuse: None Family History: Reviewed & Not Pertinent Patient has suicidal ideation: No Patient has homicidal ideation: No Renal/ Medical History: Reports: Hx Kidney Stones. 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 - Immunizations Immunizations up to date: Yes Hx Diphtheria, Pertussis, Tetanus Vaccination: Yes Review of Systems - Review of Systems Notes: Dictated Physical Exam - Vital signs Vitals: Temp Pulse Resp BP Pulse Ox 98.8 F 87 24 H 138/77 H 96 04/01/18 13:23 04/01/18 13:23 04/01/18 13:23 04/01/18 13:23 04/01/18 13:23 - Notes Notes: Dictated Course - Vital Signs Vital signs: Temp Pulse Resp BP Pulse Ox 98.8 F 87 24 H 138/77 H 96 04/01/18 13:23 04/01/18 13:23 04/01/18 13:23 04/01/18 13:23 04/01/18 13:23 - Laboratory Result Diagrams: 04/01/18 14:15 04/01/18 14:15 Laboratory results interpreted by me: 04/01/18 04/01/18 14:15 14:15 Eosinophils % 8.2 H Chloride 108 H Discharge - Discharge Clinical Impression: Kidney stone Condition: Fair Disposition: HOME, SELF-CARE Instructions: Kidney Stone ([facility])
[2018-04-01 14:35] LABS: ABSOLUTE EOSINOPHILS # (AUTO) 0.6 10^3/uL (0.0-0.6); ABSOLUTE LYMPHOCYTES (AUTO) 1.7 10^3/uL (0.5-4.7); ABSOLUTE MONOCYTES (AUTO) 0.6 10^3/uL (0.1-1.4); ABSOLUTE NEUT (AUTO) 4.7 10^3/uL (1.7-8.2); BASOPHILS % (AUTO) 0.7 % (0-2); EOSINOPHILS % (AUTO) 8.2 % (0-6); HEMATOCRIT 44.1 % (37.9-51.0); MEAN CORPUSCULAR HGB CONC 34.1 g/dL (32.0-36.0); MEAN CORPUSCULAR VOLUME 91 fl (80-97); MONOCYTES % (AUTO) 7.4 % (3-13); PLATELET COUNT 337 10^3/uL (150-450); RED BLOOD COUNT 4.85 10^6/uL (4.35-5.55); RED CELL DISTRIBUTION WIDTH 13.1 % (11.5-14.0); SEGMENTED NEUTROPHILS % (AUTO) 61.7 % (42-78); TOTAL CELLS COUNTED % (AUTO) 100 %; WHITE BLOOD COUNT 7.6 10^3/uL (4.0-10.5)
[2018-04-01 15:02] LABS: ALANINE AMINOTRANSFERASE 26 U/L (21-72); ALBUMIN 4.4 g/dL (3.5-5.0); ALKALINE PHOSPHATASE 62 U/L (38-126); ANION GAP 14 (5-19); ASPARTATE AMINO TRANSFERASE 25 U/L (17-59); BILIRUBIN,DIRECT 0.2 mg/dL (0.0-0.4); BILIRUBIN,TOTAL 0.4 mg/dL (0.2-1.3); BLOOD UREA NITROGEN 12 mg/dL (7-20); CALCIUM 9.6 mg/dL (8.4-10.2); CARBON DIOXIDE 22 mmol/L (22-30); CHLORIDE 108 mmol/L (98-107); GLUCOSE 89 mg/dL (75-110); POTASSIUM 4.5 mmol/L (3.6-5.0); SODIUM 143.8 mmol/L (137-145); TOTAL PROTEIN 7.3 g/dL (6.3-8.2)
== END 2018-04-01 15:36 | disposition left against medical advice (07) ==
LOC: ER 13:05
DX: N20.1 Calculus of ureter (principal); R10.9 Unspecified abdominal pain; R11.0 Nausea; F17.200 Nicotine dependence, unspecified, uncomplicated; Z91.041 Radiographic dye allergy status; Z88.5 Allergy status to narcotic agent; Z88.8 Allergy status to other drugs, medicaments and biological substances
CPT/HCPCS: 99284; 96361; 96374; 96375; 36415; 85025; 80053; J3010; J2405; J7030

== ENCOUNTER 2018-04-07 11:58 | Emergency (ER) | payer SELFPAY | END 2018-04-07 12:45 | disposition left against medical advice (07) | LOC: ER 11:58 | DX: Z53.21 Procedure and treatment not carried out due to patient leaving prior to being seen by health care provider (principal) ==

== ENCOUNTER 2018-04-09 04:48 | Inpatient (IN) | payer SELFPAY ==
[2018-04-09] MEDS ORDERED: ONDANSETRON HCL INJ/PF 4 MG/2 ML SDV IV ONE (05:10)
[2018-04-09] MEDS ORDERED: NORMAL SALINE 1000 ML 1,000 ML IV ONE ×3 (05:10→10:00)
[2018-04-09] MEDS ORDERED: HYDROMORPHONE HCL INJ/PF 2 MG/ML AMPULE IV ONE ×2 (05:10→09:30)
--- NOTE | 2018-04-09 05:13 | ER Document Report ---
Doctor's Note Notes: 04/09/18 05:12 I performed a quick triage evaluation the patient. Patient is a 32-year-old male with a history of kidney stone. He was seen here in the and diagnosed with 3 mm stone. He has been seen here a few more times since then because of the recurrent flank pain. Is been unable to follow-up with urologist. He said he ran out of pain medication is hurting very badly. He has been urinating blood. Nausea. No fevers. Patient has a lot of pain on exam and tender over his left flank. I have ordered a repeat CT scan as this is the patient's fourth visit for the stone and it is been over 2 weeks since his previous scan showed a 3 mm stone which typically should have passed by now. I have ordered pain medicine and nausea medicine for the patient.
[2018-04-09 05:39] LABS: ABSOLUTE BASOPHILS # (AUTO) 0.1 10^3/uL (0.0-0.2); ABSOLUTE EOSINOPHILS # (AUTO) 0.4 10^3/uL (0.0-0.6); ABSOLUTE LYMPHOCYTES (AUTO) 2.2 10^3/uL (0.5-4.7); ABSOLUTE MONOCYTES (AUTO) 0.9 10^3/uL (0.1-1.4); BASOPHILS % (AUTO) 0.5 % (0-2); EOSINOPHILS % (AUTO) 3.2 % (0-6); HEMATOCRIT 43.1 % (37.9-51.0); HEMOGLOBIN 15.1 g/dL (13.5-17.0); LYMPHOCYTES % (AUTO) 18.9 % (13-45); MEAN CORPUSCULAR HEMOGLOBIN 31.5 pg (27.0-33.4); MEAN CORPUSCULAR VOLUME 90 fl (80-97); MONOCYTES % (AUTO) 8.2 % (3-13); PLATELET COUNT 354 10^3/uL (150-450); SEGMENTED NEUTROPHILS % (AUTO) 69.2 % (42-78); TOTAL CELLS COUNTED % (AUTO) 100 %; WHITE BLOOD COUNT 11.6 10^3/uL (4.0-10.5)
[2018-04-09 05:48] LABS: APPEARANCE,URINE CLEAR; BILIRUBIN,URINE NEGATIVE (NEGATIVE); COLOR,URINE YELLOW; GLUCOSE, URINE NEGATIVE (NEGATIVE); KETONES,URINE NEGATIVE (NEGATIVE); LEUKOCYTE ESTERASE,URINE TRACE (NEGATIVE); NITRITE,URINE NEGATIVE (NEGATIVE); PROTEIN,URINE NEGATIVE (NEGATIVE); URINE SPECIFIC GRAVITY 1.019; UROBILINOGEN,URINE NEGATIVE mg/dL (<2.0)
[2018-04-09] MEDS ORDERED: FENTANYL CITRATE INJ/PF 100 MCG/2 ML AMPUL IV ONE ×2 (05:59→06:26)
[2018-04-09 06:02] LABS: ANION GAP 14 (5-19); CALCIUM 9.8 mg/dL (8.4-10.2); CARBON DIOXIDE 22 mmol/L (22-30); CHLORIDE 107 mmol/L (98-107); GLUCOSE 98 mg/dL (75-110); SODIUM 143.4 mmol/L (137-145)
--- NOTE | 2018-04-09 06:02 | RADIOLOGY REPORT (SQ) ---
EXAM DESCRIPTION: CT ABDOMEN WITHOUT IV CONTRAST COMPLETED DATE/TME: 04/09/2018 05:09 CLINICAL HISTORY: 32 years Male, flank low abd pain, hematuria. Comparison: 12.10.17 Technique: No contrast. Coronal and sagittal reformat. This exam was performed according to our departmental dose-optimization program, which includes automated exposure control, adjustment of the mA and/or kV according to patient size and/or use of iterative reconstruction technique.[facility]: Dose Right [facility]: CareDose [facility]: Dose Right [facility]: Teradose 4D [facility]: Prim’Vision LIMITATIONS: None Findings: 0.7 x 0.4 x 0.5 cm left distal ureteral stone at the S1 level with moderate left hydronephrosis-hydroureter. Right pelvic clips, colonic diverticulosis. Colonic diverticulosis. Lumbosacral transitional vertebral body. Mild thoracolumbar disc desiccation. Likely benign mildly complex left renal cyst measuring up to 1.8 cm without suspicious interval change compared with prior exam December 10, 2017. Appendix not discerned, consistent with reported history of appendectomy. Unenhanced lower thorax, abdominopelvic structures, and musculoskeleton appear otherwise grossly unremarkable. Impression: A 0.7 cm left distal ureteral stone with moderate grade obstruction.
[2018-04-09 06:20] LABS: BLOOD UREA NITROGEN 19 mg/dL (7-20); POTASSIUM 4.7 mmol/L (3.6-5.0)
--- NOTE | 2018-04-09 06:30 | ER Document Report ---
ED General - General TRAVEL OUTSIDE OF THE [place] IN LAST 30 DAYS: No <MCKENNA KRAUSE - Last Filed: 04/09/18 06:25> <CHINTAN PARTIDA - Last Filed: 04/09/18 10:25> - General Chief Complaint: Flank Pain Stated Complaint: FLANK PAIN Time Seen by Provider: 04/09/18 05:03 Notes: Patient is 32-year-old male who is on his fourth visit for the same kidney stone. He was first seen in March [address] scan which was read a 3 mm stone however when I look at back at the scan it looks much larger. It looks appears to be much more like a 7 or 8 mm kidney stone. Says pain is been intractable. He said some nausea and vomiting. No fevers. He says he also notes some blood the last 2 days in the toilet water. He says been bearing down hard because of the pain is there is some bright red blood is come from his rectal area. He does have a previous history of hemorrhoids. No fevers. No other complaints at this time. He has been unable to urologist because he does not have insurance over the money to see one. (MCKENNA KRAUSE) - Related Data Allergies/Adverse Reactions: Iodinated Contrast- Oral and IV Dye Allergy (Verified 04/01/18 13:49) Hives ketorolac [From Toradol] Allergy (Verified 04/01/18 13:09) rash tramadol [From Ultram] Allergy (Verified 04/01/18 13:09) rash Past Medical History - Social History Smoking Status: Current Every Day Smoker Frequency of alcohol use: None Drug Abuse: None Family History: Reviewed & Not Pertinent Patient has suicidal ideation: No Patient has homicidal ideation: No Renal/ Medical History: Reports: Hx Kidney Stones. 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 Denies recent illness. CARDIOVASCULAR: Denies chest pain. RESPIRATORY: Denies cough, cold, or chest congestion. Denies shortness of breath, difficulty breathing, or wheezing. GASTROINTESTINAL: Left flank pain.. Denies nausea, vomiting, or diarrhea. Rectal bleeding. GENITOURINARY: Hematuria. MUSCULOSKELETAL: Denies neck or back pain or joint pain or swelling. SKIN: Denies rash or skin lesions. NEUROLOGICAL: Denies altered mental status or loss of consciousness. Denies headache. Denies weakness or paralysis or loss of use of either side. Denies problems with gait or speech. Denies sensory or motor loss.. ALL OTHER SYSTEMS REVIEWED AND NEGATIVE. (MCKENNA KRAUSE) Physical Exam <MCKENNA KRAUSE - Last Filed: 04/09/18 06:25> <CHINTAN PARTIDA - Last Filed: 04/09/18 10:25> - Vital signs Vitals: Temp Pulse Resp BP Pulse Ox 98 F 80 18 141/84 H 100 04/09/18 04:52 04/09/18 04:52 04/09/18 04:52 04/09/18 04:52 04/09/18 04:52 - Notes Notes: General Appearance: Well nourished, alert, cooperative, no acute distress, severe obvious discomfort. Vitals: reviewed, See vital signs table. Head: no swelling or tenderness to the head Eyes: PERRL, EOMI, Conjuctiva clear Mouth: No decreasd moisture Lungs: No wheezing, No rales, No rhonci, No accessory muscle use, good air exchange bilaterally. Heart: Normal rate, Regular rythm, No murmur, no rub Abdomen: Normal BS, soft, No rigidity, some pain to palpation over left lower quadrant of the abdomen. Rectal exam: Patient has obvious internal hemorrhoids that do pop out but are easily reduced. There is some red blood coming from around them. This is likely the cause of the patient's rectal bleeding. Extremities: strength 5/5 in all extremities, good pulses in all extremities, no swelling or tenderness in the extremities, no edema. Skin: warm, dry, appropriate color, no rash Neuro: speech clear, oriented x 3, normal affect, responds appropriately to questions. (MCKENNA KRAUSE) Course - Laboratory Result Diagrams: 04/09/18 05:15 04/09/18 05:15 <MCKENNA KRAUSE - Last Filed: 04/09/18 06:25> - Laboratory Result Diagrams: 04/09/18 05:15 04/09/18 05:15 <CHINTAN PARTIDA - Last Filed: 04/09/18 10:25> - Re-evaluation Re-evalutation: 04/09/18 06:28 Patient has intractable pain relation to his kidney stone. Large kidney stone that unlikely be able to pass on his own. I did speak with Dr. Hall, urologist on-call, who agrees to see the patient in consult if admitted to the hospital. I am waiting to hear back from the hospitalist. Patient does not have any fevers or signs of infection. He did complain of some rectal bleeding which on rectal exam he does have 2 large internal hemorrhoids which appear to be the cause of the bleeding that he had. Dictation of this chart was performed using voice recognition software; therefore, there may be some unintended grammatical errors. (MCKENNA KRAUSE) - Vital Signs Vital signs: Temp Pulse Resp BP Pulse Ox 98 F 80 18 141/84 H 100 04/09/18 04:52 04/09/18 04:52 04/09/18 04:52 04/09/18 04:52 04/09/18 04:52 - Laboratory Laboratory results interpreted by me: 04/09/18 04/09/18 05:15 05:38 WBC 11.6 H Urine Blood SMALL H Ur Leukocyte Esterase TRACE H Discharge <MCKENNA KRAUSE - Last Filed: 04/09/18 06:25> - Discharge Admitting Provider: Hospitalist - [facility] Unit Admitted: Medical Floor <CHINTAN PARTIDA - Last Filed: 04/09/18 10:25> - Discharge Clinical Impression: Kidney stone Hemorrhoids Qualifiers: Hemorrhoid type: unspecified Qualified Code(s): K64.9 - Unspecified hemorrhoids Condition: Good Disposition: ADMITTED INPATIENT
[2018-04-09] MEDS ORDERED: KETOROLAC TROMETHAMINE INJ/PF 30 MG/1 ML SDV IV ONE (07:35)
[2018-04-09] MEDS ORDERED: TAMSULOSIN HCL 0.4 MG CAP.SR.24H PO ONE ×2 (07:35→09:30)
[2018-04-09] MEDS ORDERED: DIPHENHYDRAMINE HCL 50 MG/ML VIAL IV ONE (07:35)
--- NOTE | 2018-04-09 08:42 | PDOC H&P ---
History of Present Illness History of Present Illness: LEIGHTON KRUEGER is a 32 year old male patient with no significant past medical history except tobacco dependence presented with 3 weeks history of right flank pain. Reportedly this is his fourth visit to [facility] ER for the same complaint. Patient has associated dysuria, urgency and hematuria. He denies chills, fever, chest pain, cough, palpitation or diaphoresis. He CT scan of the abdomen revealed 0.70.40.5 left distal ureteral stone at the S1 level with moderate hydroureter and hydronephrosis. Urologist Dr. Hall has been consulted and he scheduled him for lithotripsy tomorrow. When I see the patient patient is excruciating colicky flank pain radiating to his groin. His urinalysis is unremarkable. 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 Social History Smoking Status: Current Every Day Smoker Frequency of Alcohol Use: Occasional Hx Recreational Drug Use: No Drugs: None - Advance Directive Resuscitation Status: Full Code Family History Family History: Reviewed & Not Pertinent Parental Family History Reviewed: Yes Children Family History Reviewed: Yes Sibling(s) Family History Reviewed.: Yes Medication/Allergy Allergies/Adverse Reactions: Iodinated Contrast- Oral and IV Dye Allergy (Verified 04/01/18 13:49) Hives ketorolac [From Toradol] Allergy (Verified 04/01/18 13:09) rash tramadol [From Ultram] Allergy (Verified 04/01/18 13:09) rash Review of Systems Constitutional: PRESENT: as per HPI Cardiovascular: PRESENT: as per HPI Respiratory: PRESENT: as per HPI Genitourinary: PRESENT: dysuria, hematuria, other - Left flank pain Neurological: PRESENT: as per HPI Physical Exam Vital Signs: Temp Pulse Resp BP Pulse Ox 98 F 80 18 141/84 H 100 04/09/18 04:52 04/09/18 04:52 04/09/18 04:52 04/09/18 04:52 04/09/18 04:52 Intake & Output 04/08/18 04/09/18 04/10/18 06:59 06:59 06:59 Intake Total 1000 Balance 1000 Weight 85.2 kg General appearance: PRESENT: no acute distress, well-developed, well-nourished Head exam: PRESENT: atraumatic, normocephalic Eye exam: PRESENT: conjunctiva pink, EOMI, PERRLA. ABSENT: scleral icterus Ear exam: PRESENT: normal external ear exam Mouth exam: PRESENT: moist, tongue midline Neck exam: ABSENT: carotid bruit, JVD, lymphadenopathy, thyromegaly Respiratory exam: PRESENT: clear to auscultation paula. ABSENT: rales, rhonchi, wheezes Cardiovascular exam: PRESENT: RRR. ABSENT: diastolic murmur, rubs, systolic murmur Pulses: PRESENT: normal dorsalis pedis pul Vascular exam: PRESENT: normal capillary refill GI/Abdominal exam: PRESENT: normal bowel sounds, soft. ABSENT: distended, guarding, mass, organolmegaly, rebound, tenderness Rectal exam: PRESENT: deferred Gentrourinary exam: PRESENT: other - Left CVA tenderness Extremities exam: PRESENT: full ROM. ABSENT: calf tenderness, clubbing, pedal edema Neurological exam: PRESENT: alert, awake, oriented to person, oriented to place , oriented to time, oriented to situation, CN II-XII grossly intact. ABSENT: motor sensory deficit Psychiatric exam: PRESENT: appropriate affect, normal mood. ABSENT: homicidal ideation, suicidal ideation Skin exam: PRESENT: dry, intact, warm. ABSENT: cyanosis, rash Results Laboratory Results: 04/09/18 05:15 04/09/18 05:15 04/09/18 04/09/18 04/09/18 05:15 05:15 05:38 WBC 11.6 H RBC 4.80 Hgb 15.1 Hct 43.1 MCV 90 MCH 31.5 MCHC 35.0 RDW 13.0 Plt Count 354 Seg Neutrophils % 69.2 Lymphocytes % 18.9 Monocytes % 8.2 Eosinophils % 3.2 Basophils % 0.5 Absolute Neutrophils 8.0 Absolute Lymphocytes 2.2 Absolute Monocytes 0.9 Absolute Eosinophils 0.4 Absolute Basophils 0.1 Sodium 143.4 Potassium 4.7 Chloride 107 Carbon Dioxide 22 Anion Gap 14 BUN 19 Creatinine 0.83 Est GFR ( Amer) > 60 Est GFR (Non-Af Amer) > 60 Glucose 98 Calcium 9.8 Urine Color YELLOW Urine Appearance CLEAR Urine pH 6.0 Ur Specific [place] 1.019 Urine Protein NEGATIVE Urine Glucose (UA) NEGATIVE Urine Ketones NEGATIVE Urine Blood SMALL H Urine Nitrite NEGATIVE Ur Leukocyte Esterase TRACE H Urine WBC (Auto) 14 Urine RBC (Auto) 17 Assessment & Plan - Diagnosis (1) Left hydroureter and hydronephrosis Is this a current diagnosis for this admission?: Yes Plan: Due to kidney stone. Patient scheduled for (2) Calculus of distal left ureter Is this a current diagnosis for this admission?: Yes Plan: As #1 (3) Hematuria Is this a current diagnosis for this admission?: Yes Plan: Due to #2 (4) Intractable left flank pain Is this a current diagnosis for this admission?: Yes Plan: Due to #2. Patient has been started on Dilaudid and fentanyl patch. - Inpatient Certification Medical Necessity: Need Close Monitoring Due to Risk of Patient Decompensation, Need For IV Fluids
[2018-04-09] MEDS ORDERED: ONDANSETRON HCL INJ/PF 4 MG/2 ML SDV IV PRN (08:43)
[2018-04-09] MEDS: CEFTRIAXONE SODIUM 1,000 MG in NORMAL SALINE 50 ML IV SCH (09:54)
[2018-04-09] MEDS ORDERED: FENTANYL 50 MCG/HR PATCH.TD72 TD SCH (10:00)
[2018-04-09] MEDS ORDERED: CEFTRIAXONE 1 GM/D5W RTU 1 GM/50 ML RTUPB IV SCH (10:00)
[2018-04-09] MEDS: NORMAL SALINE 1000 ML 1,000 ML IV PRN ×2 (13:42→20:52)
[2018-04-09] MEDS ORDERED: NICOTINE 14 MG/24 HR PATCH.TD24 TD SCH (15:00)
[2018-04-09] MEDS: HYDROMORPHONE HCL INJ/PF 2 MG/ML AMPULE IV PRN (20:51)
[2018-04-10] MEDS: HYDROMORPHONE HCL INJ/PF 2 MG/ML AMPULE IV PRN ×4 (01:55→15:12)
[2018-04-10] MEDS: NORMAL SALINE 1000 ML 1,000 ML IV PRN (04:18)
[2018-04-10] MEDS ORDERED: NEOSTIGMINE METHYLSULFATE 10 MG/10 ML VIAL ONE (09:52)
[2018-04-10] MEDS ORDERED: ROCURONIUM BROMIDE INJ 50 MG/5 ML VIAL IV ONE (09:52)
[2018-04-10] MEDS ORDERED: GLYCOPYRROLATE 1 MG/5 ML SYRINGE ONE (09:52)
[2018-04-10] MEDS ORDERED: SUCCINYLCHOLINE CHLORIDE INJ 200 MG/10 ML VIAL ONE (09:52)
[2018-04-10] MEDS: CEFTRIAXONE SODIUM 1,000 MG in NORMAL SALINE 50 ML IV SCH (10:40)
[2018-04-10] MEDS ORDERED: EPHEDRINE SULFATE INJ 50 MG/1 ML AMPULE ONE (12:01)
[2018-04-10] MEDS ORDERED: FENTANYL CITRATE INJ/PF 100 MCG/2 ML AMPUL ONE ×3 (12:01→13:41)
[2018-04-10] MEDS ORDERED: ONDANSETRON HCL INJ/PF 4 MG/2 ML SDV ONE (12:01)
[2018-04-10] MEDS ORDERED: MIDAZOLAM 2 MG/2 ML INJ ONE (12:01)
[2018-04-10] MEDS ORDERED: PROPOFOL INJ 200 MG/20 ML VIAL IV ONE (12:02)
[2018-04-10] MEDS ORDERED: DEXAMETHASONE SOD PHOSPHATE INJ 4 MG/1 ML VIAL ONE (12:02)
[2018-04-10] MEDS ORDERED: DIPHENHYDRAMINE HCL 50 MG/ML VIAL ONE (12:02)
[2018-04-10] MEDS ORDERED: MEPERIDINE HCL/PF INJ 25 MG/1 ML DISP.SYRIN IV PRN (13:30)
[2018-04-10] MEDS ORDERED: FENTANYL CITRATE INJ/PF 100 MCG/2 ML AMPUL IV PRN ×3 (13:30)
[2018-04-10] MEDS ORDERED: DIPHENHYDRAMINE HCL 50 MG/ML VIAL IV PRN (13:30)
--- NOTE | 2018-04-10 13:36 | Operative Report ---
Operative Report DATE OF SURGERY: 04/10/18 PREOPERATIVE DIAGNOSIS: Left distal ureteral calculus with obstruction POSTOPERATIVE DIAGNOSIS: Same OPERATION: Cystoscopy, ureteroscopy, laser stone fragmentation, removal of stone fragments SURGEON: CHRISTINE MCCAULEY II ANESTHESIA: GA TISSUE REMOVED OR ALTERED: Stone fragments ESTIMATED BLOOD LOSS: Minimal INTRAOPERATIVE FINDINGS: 6 mm stone just proximal to the left iliac vessels within the left ureter PROCEDURE: The patient was taken to the operating room and placed into the supine position on the cystoscopy table. After adequate general anesthesia, he was placed into the lithotomy position and prepped and draped in the usual sterile fashion. Utilizing the semirigid ureteroscope, the urethra and bladder was inspected and found to be open. The left ureteral orifice was identified and the ureteroscope placed into the left ureteral orifice. It was advanced down under direct vision utilizing fluoroscopy when necessary. The stone was encountered just above the iliac vessels on the left. Utilizing the holmium laser, the stone was fragmented into several small pieces. These pieces were retrieved to the bladder with a nitinol 0 tip 4 wire basket. During the last past. No stone fragments were noted. The ureteroscope was removed and replaced with the 21 [place] cystoscope. The stone fragments were then noted in the dependent portion of the bladder and irrigated clear of the bladder. The cystoscope was removed after the bladder was drained. The stone fragments were removed to give to the patient. The patient was then returned to PACU in satisfactory condition. He tolerated the procedure well.
--- NOTE | 2018-04-10 14:00 | RADIOLOGY REPORT (SQ) ---
EXAM DESCRIPTION: NO CHG FLUORO; KUB/ABDOMEN (SINGLE VIEW) COMPLETED DATE/TIME: 04/10/2018 1:27 pm REASON FOR STUDY: LITHOTRIPSY AND STONE EXTRACTION COMPARISON: CT abdomen pelvis 04/09/2018, 03/22/2018, 12/10/2017 FLUOROSCOPY TIME: 5 seconds 3 cysto images saved to PACS. TECHNIQUE: Intra-operative images acquired during surgical procedure to evaluate progress. NUMBER OF IMAGES: 3 cysto images are saved to pac's LIMITATIONS: None. FINDINGS: Surgical clips right lower quadrant post appendectomy. Subsequent images demonstrate placement of a ureteral scope in the left ureter. Please see the opera tive report for further details. IMPRESSION: Intra procedural imaging and fluoro. COMMENT: Quality ID [id number]: Final reports for procedures using fluoroscopy that document radiation exp osure indices, or exposure time and number of fluorographic images (if radiation exposure indices are not available) Please consult full operative report of the attending physician for description of the procedure. TECHNICAL DOCUMENTATION: JOB ID: [id number] [employer]- All Rights Reserved Reading location - IP/workstation name: [email or web address]
--- NOTE | 2018-04-10 14:00 | RADIOLOGY REPORT (SQ) ---
EXAM DESCRIPTION: NO CHG FLUORO; KUB/ABDOMEN (SINGLE VIEW) COMPLETED DATE/TIME: 04/10/2018 1:27 pm REASON FOR STUDY: LITHOTRIPSY AND STONE EXTRACTION COMPARISON: CT abdomen pelvis 04/09/2018, 03/22/2018, 12/10/2017 FLUOROSCOPY TIME: 5 seconds 3 cysto images saved to PACS. TECHNIQUE: Intra-operative images acquired during surgical procedure to evaluate progress. NUMBER OF IMAGES: 3 cysto images are saved to pac's LIMITATIONS: None. FINDINGS: Surgical clips right lower quadrant post appendectomy. Subsequent images demonstrate placement of a ureteral scope in the left ureter. Please see the opera tive report for further details. IMPRESSION: Intra procedural imaging and fluoro. COMMENT: Quality ID [id number]: Final reports for procedures using fluoroscopy that document radiation exp osure indices, or exposure time and number of fluorographic images (if radiation exposure indices are not available) Please consult full operative report of the attending physician for description of the procedure. TECHNICAL DOCUMENTATION: JOB ID: [id number] [employer]- All Rights Reserved Reading location - IP/workstation name: [email or web address]
[2018-04-10] MEDS ORDERED: HYDROCODONE/ACETAMINOPHEN 5-325 MG TABLET PO PRN ×2 (14:45→15:02)
--- NOTE | 2018-04-10 15:10 | PDOC DISCHARGE SUMMARY ---
General - Admit/Disc Date/PCP Admission Date/Primary Care Provider: 04/09/18 10:32 Discharge Date: 04/10/18 - Discharge Diagnosis (1) Left hydroureter and hydronephrosis Is this a current diagnosis for this admission?: Yes (2) Calculus of distal left ureter Is this a current diagnosis for this admission?: Yes (3) Hematuria Is this a current diagnosis for this admission?: Yes (4) Intractable left flank pain Is this a current diagnosis for this admission?: Yes - Additional Information Resuscitation Status: Full Code Home Medications: No Home Medications 04/09/18 History of Present Illness History of Present Illness: LEIGHTON KRUEGER is a 32 year old male patient with no significant past medical history except tobacco dependence presented with 3 weeks history of right flank pain. Reportedly this is [facility] for [facility] same complaint. Patient has associated dysuria, urgency and hematuria. He denies chills, fever, chest pain, cough, palpitation or diaphoresis. He CT scan of the abdomen revealed [id number] left distal ureteral stone at the S1 level with moderate hydroureter and hydronephrosis. Urologist Dr. Hall has been consulted and he scheduled him for lithotripsy tomorrow. When I see the patient patient is excruciating colicky flank pain radiating to his groin. His urinalysis is unremarkable. Hospital Course Hospital Course: This is a 32-year-old male patient admitted with excruciating intractable left flank pain secondary to 6 mm left distal ureteral calculus with obstruction. CT scan also revealed moderate hydronephrosis and hydroureter. Patient has been managed with aggressive hydration, pain management and Flomax. This morning patient was taken to ER by urologist Dr. Hall who performed lithotripsy and stone extraction. I discussed the case with Dr. Hall and cleared him for discharge and follow-up appointment in 1 month's with him in his office. Patient's vital signs are stable and he tolerates the procedures well. Physical Exam Vital Signs: Temp Pulse Resp BP Pulse Ox 97 F L 53 L 12 115/78 97 04/10/18 13:16 04/10/18 14:01 04/10/18 14:01 04/10/18 14:01 04/10/18 14:01 Intake & Output 04/09/18 04/10/18 04/11/18 06:59 06:59 06:59 Intake Total 3370 600 Output Total 280 0 Balance 3090 600 Weight 78.6 kg General appearance: PRESENT: no acute distress, well-developed, well-nourished Head exam: PRESENT: atraumatic, normocephalic Eye exam: PRESENT: conjunctiva pink, EOMI, PERRLA. ABSENT: scleral icterus Ear exam: PRESENT: normal external ear exam Mouth exam: PRESENT: moist, tongue midline Neck exam: ABSENT: carotid bruit, JVD, lymphadenopathy, thyromegaly Respiratory exam: PRESENT: clear to auscultation palua. ABSENT: rales, rhonchi, wheezes Cardiovascular exam: PRESENT: RRR. ABSENT: diastolic murmur, rubs, systolic murmur Pulses: PRESENT: normal dorsalis pedis pul Vascular exam: PRESENT: normal capillary refill GI/Abdominal exam: PRESENT: normal bowel sounds, soft. ABSENT: distended, guarding, mass, organolmegaly, rebound, tenderness Rectal exam: PRESENT: deferred Extremities exam: PRESENT: full ROM. ABSENT: calf tenderness, clubbing, pedal edema Neurological exam: PRESENT: alert, awake, oriented to person, oriented to place , oriented to time, oriented to situation, CN II-XII grossly intact. ABSENT: motor sensory deficit Psychiatric exam: PRESENT: appropriate affect, normal mood. ABSENT: homicidal ideation, suicidal ideation Skin exam: PRESENT: dry, intact, warm. ABSENT: cyanosis, rash Results Impressions: Fluoroscopy 04/10/18 00:00 IMPRESSION: Intra procedural imaging and fluoro. KUB X-Ray 04/10/18 00:00 IMPRESSION: Intra procedural imaging and fluoro. Qualifiers - * PATIENT BEING DISCHARGED WITH ANY OF THE FOLLOWING DIAGNOSIS: No
[2018-04-10] MEDS ORDERED: ALBUTEROL SULFATE 0.083% NEB 2.5 MG/3 ML AMPUL NEB ONE (15:13)
[2018-04-10 17:47] VITALS: BP 109/56
== END 2018-04-10 18:25 | disposition home or self-care (01) | DRG 669 ==
LOC: ER 04:48 → EH 10:32 → 5 19:43
PROVIDERS: ADMIT Internal Medicine; ATTEND Internal Medicine
PROC: 0TC78ZZ Extirpation of Matter from Left Ureter, Via Natural or Artificial Opening Endoscopic (ICD-10-PCS; principal; 2018-04-10 11:45)
DX: N13.2 Hydronephrosis with renal and ureteral calculous obstruction (principal); R31.9 Hematuria, unspecified; K64.9 Unspecified hemorrhoids; F17.210 Nicotine dependence, cigarettes, uncomplicated; Z87.820 Personal history of traumatic brain injury
CPT/HCPCS: 36415; 74018; 76380; 80048; 81001; 85025; 87040; 918; 96361; 96374; 96375; 96376; 99285; J0330; J0696; J1100; J1170; J1200; J1885; J2250; J2405; J2704; J3010; J3490; J7030; Q9967

== ENCOUNTER 2019-01-01 13:19 | Emergency (ER) | payer SELFPAY ==
[2019-01-01] MEDS ORDERED: HYDROCODONE/ACETAMINOPHEN 5-325 MG TABLET PO ONE (13:57)
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
[2019-01-01] MEDS ORDERED: AMOXICILLIN TRYHYD 250 MG/5 ML SUSP 80 ML (ER DISP) PO ONE (13:58)
[2019-01-01] MEDS ORDERED: AMOXICILLIN TRIHYDRATE 500 MG CAPSULE PO ONE (14:14)
== END 2019-01-01 15:00 | disposition left against medical advice (07) ==
LOC: ER 13:19
DX: R60.9 Edema, unspecified (principal); R41.82 Altered mental status, unspecified; K08.9 Disorder of teeth and supporting structures, unspecified; F17.200 Nicotine dependence, unspecified, uncomplicated; Z87.442 Personal history of urinary calculi; Z87.820 Personal history of traumatic brain injury
CPT/HCPCS: 99281

== ENCOUNTER → 2019-03-08 | Outpatient (CLI) | payer SELFPAY ==
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
== END ==
LOC: RAD 11:19
PROVIDERS: ATTEND Family Medicine
DX: S39.92XD Unspecified injury of lower back, subsequent encounter (principal)
CPT/HCPCS: 72110; 72220